=== PATIENT | female | born 2000 | race Caucasian/White ===

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

== ENCOUNTER 2024-10-28 11:07 | Outpatient (CLI) | payer SELFPAY ==
[2024-10-28 11:36] VITALS: BP 118/69; PULSE 94
[2024-10-28 11:48] LABS: Glucose Urine UA Negative (Normal); Nitrate Urine Negative (Negative); Specific Gravity, Urine 1.015 (1.005-1.030)
== END 2024-10-28 13:50 | disposition home or self-care (01) ==
LOC: OPOB 11:08 → OBGYN 11:09
PROVIDERS: PCP Nurse Practitioner Family; Visit Provider Family Medicine
DX: O26.859 Spotting complicating pregnancy, unspecified trimester (principal); Z3A.00 Weeks of gestation of pregnancy not specified; R25.2 Cramp and spasm
CPT/HCPCS: 59025; 81001; 99211; J7030

== ENCOUNTER 2024-12-30 11:30 | Observation (INO) | payer MEDICAID, SELFPAY ==
[2024-12-30] VITALS (12 sets, daily range): BP systolic 117–169; BP diastolic 70–109; PULSE 67–127; RESP 16–18; TEMP 36.7–36.8; O2SAT 97–98; BMI 25.4; BMI 24.6
--- OUTSIDE RECORDS SUMMARY | 2024-12-30 12:04 | XMS_ITS | Continuity of Care Document ---
Author Organization [facility], [facility] - [facility]- Gigi Summers Address [address] [place] [address] Care Team Providers Care Hl7 Developer Name Role Phone [facility] Primary Care Provider Assessment Encounter Date Assessment Date Assessment LastModified by Organization Details LastModified Time 12/23/2024 12/23/2024 admit L&D for IOL, dx GHTN Anatomy: EFW 31%tile, anterior placenta [id number] Not available 12/23/2024 20:08:15 Plan of Treatment Reminders Order Date Submit Date Provider Last Modified By Organization Details Last Modified Time Details Appointments Postpartu m 2024 01:45P M Eve Dennison MD Not available Not available Not available Lab None recorded. Referral None recorded. Procedures None recorded. Surgeries None recorded. Imaging None recorded. Medication Orders None recorded. Patient TargetsNo targets recorded. Patient InstructionsNo instructions recorded. Reason for Referral None Reported. Results Created Date Observation Date Name Description Value Unit Range Abnormal Flag Note LastModifiedBy Organization Detail LastModifiedTime 06/03/1906/02/2024 CBC WBC 8.38 x10(3 )/uL 3.98 - 10.40 Not Available [facility] [address] [place], [address], 06/02/2024 14:28:04 06/03/19 25 06/02/2024 CBC RBC 4.33 x10(6 )/uL 3.93 - 5.22 Not Available [facility] [address] [place], [address], 06/02/2024 14:28:04 06/03/19 25 06/02/2024 CBC HGB 13.3 g/dL 11.2 - 15.7 Not Available [facility] [address] [place], [address], 06/02/2024 14:28:04 06/03/19 25 06/02/2024 CBC HCT 39.2 % 34.1 - 44.9 Not Available [facility] [address] [place], [address], 06/02/2024 14:28:04 06/03/19 25 06/02/2024 CBC MCV 90.5 fL 79.4 - 94.8 Not Available [facility] [address] [place], [address], 06/02/2024 14:28:04 06/03/19 25 06/02/2024 CBC MCH 30.7 pg 25.6 - 32.2 Not Available [facility] [address] [place], [address], 06/02/2024 14:28:04 06/03/19 25 06/02/2024 CBC MCHC 33.9 g/dL 32.2 - 35.5 Not Available [facility] [address] [place], [address], 06/02/2024 14:28:04 06/03/19 25 06/02/2024 CBC platelet count 276 x10(3 )/uL 182 - 369 Not Available [facility] [address] [place], [address], 06/02/2024 14:28:04 06/03/19 25 06/02/2024 CBC neut% 71.7 % 34.0 - 71.1 high Not Available [facility] [address], [place], [place], [address], 06/02/2024 14:28:04 06/03/1906/02/2024 CBC lymph% 19.3 % 19.3 - 51.7 Not Available [facility] [address], [place], [place], [address], 06/02/2024 14:28:04 06/03/19 25 06/02/2024 CBC mono% 5.1 % 4.7 - 12.5 Not Available [facility] [address], [place], [place], [address], 06/02/2024 14:28:04 06/03/19 25 06/02/2024 CBC baso% 0.5 % 0.1 - 1.2 Not Available [facility] [address], [place], [place], [address], 06/02/2024 14:28:04 06/03/19 25 06/02/2024 CBC eo% 3.0 % 0.7 - 5.8 Not Available [facility] [address], [place], [place], [address], 06/02/2024 14:28:06/03/19 25 06/02/2024 CBC Ig% 0.4 % 0.0 - 0.4 Not Available [facility] [address], [place], [address], 06/02/2024 14:28:04 06/03/1906/02/2024 CBC neut# 6.01 x10(3 )/uL 1.56 - 6.13 Not Available [facility] [address], [place], [address], 06/02/2024 14:28:04 06/03/19 25 06/02/2024 CBC lymph# 1.62 x10(3 )/uL 1.18 - 3.74 Not Available [facility] [address] [place], [address], 06/02/2024 14:28:04 06/03/19 25 06/02/2024 CBC mono# 0.43 x10(3 )/uL 0.24 - 0.86 Not Available [facility] [address] [place], [address], 06/02/2024 14:28:04 06/03/19 25 06/02/2024 CBC baso# 0.04 x10(3 )/uL 0.01 - 0.08 Not Available [facility] [address] [place], [address], 06/02/2024 14:28:04 06/03/19 25 06/02/2024 CBC eo# 0.25 x10(3 )/uL 0.04 - 0.36 Not Available [facility] [address] [place], [address], 06/02/2024 14:28:04 06/03/19 25 06/02/2024 CBC Ig# 0.03 x10(3 )/uL 0.00 - 0.03 Not Available [facility] [address], [place], [address], 06/02/2024 14:28:04 06/03/19 25 06/02/2024 CBC RDW-CV 12.1 % 11.7 - 14.4 Not Available [facility] [address], [place], [address], 06/02/2024 14:28:04 06/03/19 25 06/02/2024 CBC RDW-SD 40.3 fL 36.4 - 46.3 Not Available [facility] [address] [place], [address], 06/02/2024 14:28:04 06/03/19 25 06/02/2024 CBC MPV 9.5 fL 9.4 - 12.3 Not Available [facility] [address] [place], [address], 06/02/2024 14:28:04 06/03/19 25 06/02/2024 CBC NRBC# 0.00 x10(3 )/uL 0.00 - 0.01 Not Available [facility] [address] [place], [address], 06/02/2024 14:28:04 06/03/19 25 06/02/2024 CBC NRBC% 0.0 % 0.0 - 0.2 Not Available [facility] [address] [place], [address], 06/02/2024 14:28:04 06/03/19 25 06/02/2024 MICRO SCOPI C URINE EXAM urine WBC 10-20 /hpf 0-3/ hpf abnormal Not Available [facility] [address] [place], [address], 06/02/2024 14:28:06/03/19 25 06/02/2024 MICRO SCOPI C URINE EXAM urine RBC 0-3 /hpf 0-trac e / hpf Not Available [facility] [address] [place], [address], 06/02/2024 14:28:06/03/19 25 06/02/2024 MICRO SCOPI C URINE EXAM urine epithelials 10-20 /hpf 0-trac e/ hpf abnormal Not Available [facility] [address] [place], [address], 06/02/2024 14:28:06 06/03/19 25 06/02/2024 MICRO SCOPI C URINE EXAM urine bacteria 2+ /hpf negati ve abnormal Not Available [facility] [address] [place], [address], 06/02/2024 14:28:06 06/03/19 25 06/02/2024 MICRO SCOPI C URINE EXAM urine casts NONE SEEN /hpf negati ve Not Available [facility] [address] [place], [address], 06/02/2024 14:28:06 06/03/19 25 06/02/2024 MICRO SCOPI C URINE EXAM urine crystals NONE SEEN /hpf negati ve Not Available [facility] [address] [place], [address], 06/02/2024 14:28:06 06/03/19 25 06/02/2024 MICRO SCOPI C URINE EXAM urine yeast NONE SEEN /hpf negati ve Not Available [facility] [address] [place], [address], 06/02/2024 14:28:06 06/03/19 25 06/03/2024 CHLAM YDIA TRACH OMATI S chlamydia trachomatis, aptima NOT DETECT ED normal DNA testi ng perfo rmed by [employer] enedina Ampli ficat ion (TMA) . Resul ts shoul d be inter prete d in conju nctio n with patie nt histo ry and clini jesus prese ntati on. This assay is highl y accur ate, but rare false posit lorena and negat lorena resul ts may occur . Posit lorena resul ts in low preva lence popul ation s may requi re re-ev aluat ion. A negat lorena resul t does not precl ude a possi ble infec tion due to a speci men inade quacy or sampl ing error . Test perfo rmed by [facility], [address], [place] [address] , Eligio Zamarripa ra, DO, [facility], CLIA# [id number] Not Available [facility] ([facility]) [address], [place], [address], 06/04/2024 06:34:13 06/03/19 25 06/03/2024 NEISS ERIA GONOR RHOEA E neisseria gonorrhoeae, aptima NOT DETECT ED normal DNA testi ng perfo rmed by [employer] Ampli ficat ion (TMA) . Resul ts shoul d be inter prete d in conju nctio n with patie nt histo ry and clini jesus prese ntati on. This assay is highl y accur ate, but rare false posit lorena and negat lorena resul ts may occur . Posit lorena resul ts in low preva lence popul ation s may requi re re-ev aluat ion. A negat lorena resul t does not precl ude a possi ble infec tion due to a speci men inade quacy or sampl ing error . Test perfo rmed by [facility], [address], [place] [address] , Eligio Zamarripa ra, , [facility], CLIA# [id number] Not Available [facility] ([facility]) [address], [place], [address], 06/04/2024 06:34:15 06/03/19 25 06/03/2024 ABORH TYPE, BLOOD BANK ABO type, blood bank A Not Available [facility] ([facility]) [address], [place], [address], 06/04/2024 13:33:53 06/03/19 25 06/03/2024 ABORH TYPE, BLOOD BANK Rh typing, blood bank POSITI VE RH testi ng resul ts (RH Posit lorena/R H Negat lorena) are depen dent upon reage nt formu latio ns, techn ical perfo rmanc e of assay , and testi ng platf orm or metho dolog y. With the elimi natio n of routi ne testi ng for the weak expre ssion of the D antig en, some patie nts who have previ ously been class ified as RH Posit lorena many now be repor enedina as RH Negat lorena, or rarel y, vice versa . If you have any quest ions regar ding this test, pleas e call our Clien t Bonii earnest depar tment . Not Available [facility] ([facility]) [facility] [facility] [address], [place], [address], 06/04/2024 13:33:53 06/03/19 25 06/03/2024 ANTIB VALENTINA SCREE N, REFLE X TO IDENT IFICA TION antibody screen, reflex to identificati on NEGATI VE negati ve Not Available [facility] ([facility]) [facility] [address], [place], [address], 06/04/2024 13:33:55 06/03/19 25 06/03/2024 HIV 1/2 AB SCREE N W/P24 AG HIV 1/2 Ab screen w/p24ag NONREA CTIVE nonrea ctive Not Available [facility] [address], [place], [address], 06/04/2024 13:33:56 06/03/19 25 06/03/2024 RUBEL LA ANTIB VALENTINA, IGG rubella antibody, IgG 74.0 IU/mL >9.9 INTER PRETA TION OF RESUL TS < 10.0 Non-i mmune /Non- react lorena >= 10.0 Immun e/[place] ctive Prese nce of antib odies to Rubel la is presu mptiv e evide nce of immun ity excep t when acute infec tion is suspe cted. Not Available [facility] ([facility]) [address] [facility] [address], [place], [address], 06/04/2024 13:33:57 06/03/19 25 06/03/2024 HEMOG LOBIN A1C hemoglobin A1C 4.9 % <5.7 The follo wing HbA1c range s recom mayda d by the Ameri can Diabe renny Assoc iatio n (ADA) may be used as an aid in the diagn osis of diabe renny melli tus. HbA1c Sugge sted Diagn osis >=6.5 % Diabe tic 5.7% - 6.4% Pre-D iabet ic <5.7% Non-D iabet ic Not Available [facility] ([facility]) [facility] [address], [place], [address], 06/04/2024 13:33:58 06/03/19 25 06/03/2024 HEMOG LOBIN A1C estimated average glucose (EAG) 94 mg/dL Estim ated Sarah Ann ge Gluco se (eAG) is calcu lated using the equat ion eAG = (28.7 x HbA1c ) - 46.7 based on the guide lines estab lishe d by the ADA. If the patie nt has certa in disea ses inclu ding kidne y disea se, sickl e cell anemi a, thala ssemi a, or is takin g medic ation s such as dapso ne, eryth ropoi etin, or iron, eAG shoul d not be evalu ated. Not Available [facility] ([facility]) [facility] [address], [place], [address], 06/04/2024 13:33:58 06/03/19 25 06/03/2024 HEPAT ITIS B SURFA CE ANTIG EN (HBSA G) hepatitis B surface antigen (HBsAg) NONREA CTIVE nonrea ctive Not Available [facility] ([facility]) [address] [place] [address] [address], [place], [address], 06/04/2024 13:34:00 06/03/19 25 06/03/2024 HEPAT ITIS C ANTIB VALENTINA (HCV) IGG hepatitis C antibody (HCV) IgG NONREA CTIVE nonrea ctive Not Available [facility] ([facility]) [address] [place] [address] [address], [place], [address], 06/04/2024 13:34:01 06/03/19 25 06/04/2024 HEMOG LOBIN EVAL. WITH RFX FOR CONF. WITH INTER P. HGB A % 97.5 % 94.3-9 8.5 Not Available [facility] ([facility]) [address] [place] [address] [address], [place], [address], 06/04/2024 13:34:02 06/03/19 25 06/04/2024 HEMOG LOBIN EVAL. WITH RFX FOR CONF. WITH INTER P. HGB A2 % 2.5 % 1.5-3. 7 Not Available [facility] ([facility]) [address] [place] [address] [address], [place], [address], 06/04/2024 13:34:02 06/03/19 25 06/04/2024 HEMOG LOBIN EVAL. WITH RFX FOR CONF. WITH INTER P. interpretati on for hemoglobin evaluation SEE COMMEN T Hemog lobin (Hb) elect ropho resis at alkal ine pH shows 2 Hb bands with elect ropho retic mobil ities corre spond ing to A, A2.No abnor mal hemog lobin s detec enedina. One or two gene delet ion alpha thala ssemi a canno t be exclu ded since these condi tions are not assoc iated with abnor mal findi ngs on routi ne hemog lobin elect ropho resis and excep t for mild micro cytos is, are gener ally not assoc iated with other hemat ologi c abnor malit ies.T his inter preta tion of hemog lobin elect ropho resis resul ts is based on the presu mptio n that this patie nt has not been recen tly trans fused with red blood cells .Path ologi st revie wed. NSK Not Available [facility] ([facility]) [address] [facility] [address], [place], [address], 06/04/2024 13:34:02 06/03/19 25 06/03/2024 RPR (NON- TREPO NEMAL ) REFLE X TO CONFI RMATI ON RPR (non-trepone mal) reflex to confirmation NONREA CTIVE nonrea ctive No serol ogica l evide nce of infec tion with Trepo nemal palli dum, early prima ry syphi lis canno t be exclu ded. Retes t in 2-4 weeks if syphi lis is clini yazmin suspe cted. Not Available [facility] ([facility]) [address] [facility] [address], [place], [address], 06/04/2024 13:34:04 06/03/19 25 06/03/2024 VARIC HAYDEN ZOSTE R VIRUS (VZV) ANTIB VALENTINA, IGG varicella zoster virus (vzv) antibody, IgG NEGATI VE S/co negati ve abnormal A negat lorena resul t for IgG antib odies to VZV gener ally indic ates that immun ity has not been acqui red but does not exclu de the possi bilit y of acute VZV infec tion, becau se the infec tion may be in its very early stage and the patie nt may be still unabl e to synth esize VZV speci fic antib odies , or the antib odies may be prese nt in undet ectab le level s. If expos ure to varic hayden- zoste r virus is suspe cted despi te a negat lorena findi ng, a secon d sampl e shoul d be colle cted and teste d for IgM and IgG durin g the cours e of infec tion. A posit lorena resul t for IgG antib odies to VZV gener ally indic ates expos ure to the patho gen or admin istra tion of immun oglob ulins , but it is not an indic ation of activ e infec tion or stage of disea se. Not Available [facility] ([facility]) [address] [place] [address] [address], [place], [address], 06/04/2024 13:34:05 06/03/19 25 06/04/2024 CULTU RE, URINE specimen source URINE - CC Not Available [facility]) [address] [place] [address] [address], [place], [address], 06/04/2024 16:24:10 06/03/19 25 06/04/2024 CULTU RE, URINE culture, urine SEE BELOW Final Repor t : No Signi fican t Growt h Not Available [facility] ([facility]) [address] [place] [address] [address], [place], [address], 06/04/2024 16:24:10 06/03/19 25 06/02/2024 PANOR AMA PRENA LETICIA TEST report summary LOW RISK normal LOW RISK Not Available [facility] [address], [place], [address], 06/07/2024 22:42:32 06/03/19 25 06/02/2024 PANOR AMA PRENA LETICIA TEST report note SEE NOTES normal Not Available [facility] [address], [place], [address], 06/07/2024 22:42:32 06/03/19 25 06/02/2024 PANOR AMA PRENA LETICIA TEST trisomy 13 age-based risk text 7 (0.02% ) normal Not Available [facility] [address], [place], [address], 06/07/2024 22:42:32 06/03/19 25 06/02/2024 PANOR AMA PRENA LETICIA TEST trisomy 13 risk score text <1/10, 000 (<0.01 %) normal Not Available [facility] [address], [place], [address], 06/07/2024 22:42:32 06/03/19 25 06/02/2024 PANOR AMA PRENA LETICIA TEST trisomy 13 result text LOW RISK normal Not Available [facility] [address], [place], [address], 06/07/2024 22:42:32 06/03/19 25 06/02/2024 PANOR AMA PRENA LETICIA TEST trisomy 18 age-based risk text 3 (0.05% ) normal Not Available [facility] [address], [place], [address], 06/07/2024 22:42:32 06/03/19 25 06/02/2024 PANOR AMA PRENA LETICIA TEST trisomy 18 risk score text <1/10, 000 (<0.01 %) normal Not Available [facility] [address], [place], [address], 06/07/2024 22:42:32 06/03/19 25 06/02/2024 PANOR AMA PRENA LETICIA TEST trisomy 18 result text LOW RISK normal Not Available [facility] [address], [place], [address], 06/07/2024 22:42:32 06/03/19 25 06/02/2024 PANOR AMA PRENA LETICIA TEST trisomy 21 age-based risk text (0.1%) normal Not Available [facility] [address], [place], [address], 06/07/2024 22:42:32 06/03/19 25 06/02/2024 PANOR AMA PRENA LETICIA TEST trisomy 21 risk score text <1/10, 000 (<0.01 %) normal Not Available [facility] [address], [place], [address], 06/07/2024 22:42:32 06/03/19 25 06/02/2024 PANOR AMA PRENA LETICIA TEST trisomy 21 result text LOW RISK normal Not Available [facility] [address], [place], [address], 06/07/2024 22:42:32 06/03/19 25 06/02/2024 PANOR AMA PRENA LETICIA TEST monosomy X age-based risk text 1 (0.39% ) normal Not Available [facility] [address], [place], [address], 06/07/2024 22:42:32 06/03/19 25 06/02/2024 PANOR AMA PRENA LETICIA TEST monosomy X risk score text <1/10, 000 (<0.01 %) normal Not Available [facility] [address], [place], [address], 06/07/2024 22:42:32 06/03/19 25 06/02/2024 PANOR AMA PRENA LETICIA TEST monosomy X result text LOW RISK normal Not Available [facility] [address], [place], [address], 06/07/2024 22:42:32 06/03/19 25 06/02/2024 PANOR AMA PRENA LETICIA TEST 22Q11.2 deletion syndrome population-b ased risk text 1/2,00 0 normal Not Available [facility] [address], [place], [address], 06/07/2024 22:42:32 06/03/19 25 06/02/2024 PANOR AMA PRENA LETICIA TEST 22Q11.2 deletion syndrome risk score text 1/3,10 0 normal Not Available [facility] [address], [place], [address], 06/07/2024 22:42:32 06/03/19 25 06/02/2024 PANOR AMA PRENA LETICIA TEST 22Q11.2 deletion syndrome result text LOW RISK normal Not Available [facility] [address], [place], [address], 06/07/2024 22:42:32 06/03/19 25 06/02/2024 PANOR AMA PRENA LETICIA TEST triploidy result text LOW RISK normal Not Available [facility] [address], [place], [address], 06/07/2024 22:42:32 06/03/19 25 06/02/2024 PANOR AMA PRENA LETICIA TEST gender of fetus MALE Not Available [facility] [address], [place], [address], 06/07/2024 22:42:32 06/03/19 25 06/02/2024 PANOR AMA PRENA LETICIA TEST fraction 5.1% Not Available [facility] [address], [place], [address], 06/07/2024 22:42:32 06/03/19 25 06/02/2024 PANOR AMA PRENA ELTICIA TEST footnotes SEE NOTES Testi ng Metho dolog y DNA isola enedina from mater nal blood , which conta ins place ntal DNA, is ampli fied at speci fic loci using a targe enedina PCR assay and is seque nced using a high- throu ghput seque ncer. fract ion is deter mined using a propr ietar y algor ithm incor porat ing data from singl e nucle otide polym orphi sm-ba sed (SNP- based ) next- gener ation seque ncing [Perg deysi E et al. Obste t Gynec ol. 2014 Oct;1 24(2 Pt 1):21 0-8]. If there is suffi cient fract ion, seque ncing data is lisha zed using a propr ietar y SNP-b ased algor ithm to deter mine the copy numbe r for chrom osome s 13, 18, 21, X and Y. If order ed, speci fic micro delet ions will be evalu ated using jacky chun [Wapn er RJ et al. Am J Obste t Gynec ol. 2014;2 12(3) :332. e1-9] . If the fract ion is insuf ficie nt, signa l enhan cemen t and/o r an addit ional algor ithm to deter mine wheth er there is an incre ased risk for tripl oidy, triso my 18, and triso my 13 may be utili zed [Evan moralesa et al. Ultra sound Obste t Gynec ol 2019; 53:73 -79]. Howev er, some sampl es will not produ ce a resul t due to failu re to meet the neces jennifer quali ty thres holds . This test has been valid ated on women with a singl eton, twin or egg donor pregn orion of at least nine weeks gesta tion. A resul t will not be avail able for highe r order multi ples and multi ple gesta tion pregn ancie s with an egg donor or surro gate, or bone marro w trans plant recip ients . Compl ete test panel is not avail able for twin gesta tions and pregn ancie s achie jese with an egg donor or surro gate. For twin pregn ancie s with a fract ion value below the thres hold for lisha sis, a sum of the fract ions for both twins will be repor enedina. As this assay is a scree efrain test and not diagn ostic , false posit des and false negat des can occur . High risk test resul ts need diagn ostic confi rmati on by alter nativ e testi ng metho ds. Low risk resul ts do not fully exclu de the diagn osis of any of the syndr omes nor do they exclu de the possi bilit y of other chrom osoma l abnor malit ies or defec ts, which are not a part of this test. Poten tial sourc es of inacc urate resul ts inclu de, but are not limit ed to, mosai cism, low fract ion, limit ation s of curre nt diagn ostic techn iques , or misid entif icati on of sampl es. This test will not ident marilee all delet ions assoc iated with each micro delet ion syndr ome. This test has been valid ated for delet ions > = 0.5 Mb withi n the 22q11 .2 A-D regio n. This test has been valid ated on full regio n delet ions only for 1p36 delet ion syndr ome, Cri-d u-zayra t syndr ome, Prade r Willi syndr ome and Mitch man syndr ome and may be unabl e to detec t small er delet ions. Micro delet ion risk score may be depen dent upon fract ion, as delet ions on the mater alessandra inher ited copy are diffi cult to ident marilee at lower fract ions. Test resul ts shoul d alway s be inter prete d by a clini rachel in the carina xt of clini jesus and famil ial data with the avail abili ty of cherri ic couns eling when appro priat e. ----- ----- ----- - Discl aimer s The extra ction , nabeel ry prepa ratio n, and seque ncing of this test were perfo rmed by [employer] [address], [place] [address] (CLIA ID [id number] ). The data lisha sis and repor ting of this test were perfo rmed by [employer] [address], [place] [address] (CLIA ID [id number] ). The perfo rmanc e humberto cteri stics of this test were devel oped by [employer].( CLIA ID [id number] ). This test has not been clear ed or appro jese by the U.S. Food and Drug Admin istra tion (FDA) . These labor atori es are regul ated under CLIA as quali fied to perfo rm high- compl exity testi ng. 2020 [employer] All Right s Reser jese. Pleas e refer to the attac hed PDF repor t Revie wed By: Sha Fatima M.D., Ph.D. , FAC , Azam Rios atory Direc tor CLIA Lab Direc tor: Lima Vgiil, Ph.D. , FACMG IF THE ORDER ING PROVI ALFONSO HAS QUEST IONS OR WISHE S TO DISCU SS THE RESUL TS, PLEAS E CONTA CT US AT [phone] #[phone]. 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 Not Available [facility] [address], [place], [address], 06/07/2024 22:42:32 06/03/19 25 06/02/2024 HORIZ ON 4 (SMA, CF, FRAGI LE X, DMD) report summary NEGATI VE normal Negat lorena for 4 out of 4 disea ses. Not Available [facility] [address], [place], [address], 06/12/2024 14:12:38 06/03/19 25 06/02/2024 HORIZ ON 4 (SMA, CF, FRAGI LE X, DMD) cystic fibrosis NEGATI VE normal Not Available [facility] [address], [place], [address], 06/12/2024 14:12:38 06/03/19 25 06/02/2024 HORIZ ON 4 (SMA, CF, FRAGI LE X, DMD) duchenne/bec ker muscular dystrophy (X-linked) NEGATI VE normal Not Available [facility] [address], [place], [address], 06/12/2024 14:12:38 06/03/19 25 06/02/2024 HORIZ ON 4 (SMA, CF, FRAGI LE X, DMD) fragile X syndrome (X-linked) NEGATI VE normal NEGAT LORENA Fragi le X Syndr ome (X-li nked) resul ts 33 and 30 CGG repea ts were detec enedina in the FMR1 genes . Not Available [facility] [address], [place], [address], 06/12/2024 14:12:38 06/03/19 25 06/02/2024 HORIZ ON 4 (SMA, CF, FRAGI LE X, DMD) spinal muscular atrophy NEGATI VE normal NEGAT LORENA Spina l Muscu lar Atrop hy (SMA) Resul ts SMN1: Two copie s; g.271 34T>G : absen t; the absen ce of the g.271 34T>G varia nt decre ases the chan e to be a silen t (2+0) rick er. Not Available [facility] [address], [place], [address], 06/12/2024 14:12:38 06/03/19 25 06/02/2024 HORIZ ON 4 (SMA, CF, FRAGI LE X, DMD) panel notes SEE NOTES Not Available [facility] [address], [place], [address], 06/12/2024 14:12:38 06/03/19 25 06/02/2024 HORIZ ON 4 (SMA, CF, FRAGI LE X, DMD) report note SEE NOTES Not Available [facility] [address], [place], [address], 06/12/2024 14:12:38 06/03/19 25 06/02/2024 HORIZ ON 4 (SMA, CF, FRAGI LE X, DMD) footnotes SEE NOTES Pleas e see the attac hed PDF for infor hayley ziegler Condi tiwanda , Metho dolog y, Discl steven s, and heidi er infor hayley herbert. Test perfo rmed by [employer] : [id number], [place] [address] CLIA ID #[id number] CLIA Lab Direc tor: Lima Vigil, Ph.D. , FACMG Not Available [facility] [address], [place], [address], 06/12/2024 14:12:38 06/03/19 25 06/02/2024 drug scree n, urine THC negati ve Not Available [facility]- [place] [address], [place], [address], 06/02/2024 11:56:44 06/03/19 25 06/02/2024 drug scree n, urine CORY negati ve Not Available [facility]- [place] [address], [place], [address], 06/02/2024 11:56:44 06/03/19 25 06/02/2024 drug scree n, urine OPI negati ve Not Available [facility] [place] [address], [place], [address], 06/02/2024 11:56:44 06/03/19 25 06/02/2024 drug scree n, urine MET negati ve Not Available [facility] [place] [address], [place], [address], 06/02/2024 11:56:44 06/03/19 25 06/02/2024 drug scree n, urine AMP negati ve Not Available [facility] [place] [address], [place], [address], 06/02/2024 11:56:44 06/03/19 25 06/02/2024 drug scree n, urine BZO negati ve Not Available [facility] [place] [address], [place], [address], 06/02/2024 11:56:44 06/03/19 25 06/02/2024 drug scree n, urine BAR negati ve Not Available [facility] [place] [address], [place], [address], 06/02/2024 11:56:44 06/03/19 25 06/02/2024 drug scree n, urine MTD negati ve Not Available [facility] [place] [address], [place], [address], 06/02/2024 11:56:44 06/03/19 25 06/02/2024 drug scree n, urine BUPG negati ve Not Available [facility]- [place] [address], [place], [address], 06/02/2024 11:56:44 06/03/19 25 06/02/2024 drug scree n, urine TCA negati ve Not Available [facility] [place] [address], [place], [address], 06/02/2024 11:56:44 06/03/19 25 06/02/2024 drug scree n, urine MDMA negati ve Not Available [facility] [place] [address], [place], [address], 06/02/2024 11:56:44 06/03/19 25 06/02/2024 drug scree n, urine OXY negati ve Not Available [facility] [place] [address], [place], [address], 06/02/2024 11:56:44 06/03/19 25 06/02/2024 drug scree n, urine PCP negati ve Not Available [facility] [place] [address], [place], [address], 06/02/2024 11:56:44 06/03/19 25 06/02/2024 drug scree n, urine PPX negati ve Not Available [facility]- [place] [address] [place], [address], 06/02/2024 11:56:44 07/29/19 25 08/04/2024 MATER NAL SCREE N, AFP ONLY, 2.0 MOM, SERUM weight (maternal) 121.0 LBS. pound s Not Available [facility] [address] [place], [address], 08/04/2024 17:43:52 07/29/19 25 08/04/2024 MATER NAL SCREE N, AFP ONLY, 2.0 MOM, SERUM race (maternal) CAUCAS YARELI Not Available [facility] [address] [place], [address], 08/04/2024 17:43:52 07/29/19 25 08/04/2024 MATER NAL SCREE N, AFP ONLY, 2.0 MOM, SERUM family history of neural tube defects NO Not Available [facility] [address] [place], [address], 08/04/2024 17:43:52 07/29/19 25 08/04/2024 MATER NAL SCREE N, AFP ONLY, 2.0 MOM, SERUM insulin dependent diabetes NO Not Available [facility] [address], [place], [address], 08/04/2024 17:43:52 07/29/19 25 08/04/2024 MATER NAL SCREE N, AFP ONLY, 2.0 MOM, SERUM screen INITIA L Not Available [facility] [address], [place], [address], 08/04/2024 17:43:52 07/29/19 25 08/04/2024 MATER NAL SCREE N, AFP ONLY, 2.0 MOM, SERUM NOT AVAILA BLE Not Available [facility] [address] [place], [address], 08/04/2024 17:43:52 07/29/19 25 08/04/2024 MATER NAL SCREE N, AFP ONLY, 2.0 MOM, SERUM parity NOT AVAILA BLE Not Available [facility] [address] [place], [address], 08/04/2024 17:43:52 07/29/19 25 08/04/2024 MATER NAL SCREE N, AFP ONLY, 2.0 MOM, SERUM date of LMP 23 Not Available [facility] [address] [place], [address], 08/04/2024 17:43:52 07/29/19 25 08/04/2024 MATER NAL SCREE N, AFP ONLY, 2.0 MOM, SERUM method of estimation LMP Not Available [facility] [address] [place], [address], 08/04/2024 17:43:52 07/29/19 25 08/04/2024 MATER NAL SCREE N, AFP ONLY, 2.0 MOM, SERUM number of fetuses SINGLE TON Not Available [facility] [address] [place], [address], 08/04/2024 17:43:52 07/29/19 25 08/04/2024 MATER NAL SCREE N, AFP ONLY, 2.0 MOM, SERUM weeks gestation 17 WKS 6 DAYS Not Available [facility] [address] [place], [address], 08/04/2024 17:43:52 07/29/19 25 08/04/2024 MATER NAL SCREE N, AFP ONLY, 2.0 MOM, SERUM alpha-fetopr otein (AFP) 51.81 NG/mL Not Available [facility] [address] [place], [address], 08/04/2024 17:43:52 07/29/19 25 08/04/2024 MATER NAL SCREE N, AFP ONLY, 2.0 MOM, SERUM alpha-fetopr otein (AFP) MOM 1.06 MOM 0.00-1 .99 Not Available [facility] [address] [place], [address], 08/04/2024 17:43:52 07/29/19 25 08/04/2024 MATER NAL SCREE N, AFP ONLY, 2.0 MOM, SERUM osb MOM cutoff 2.00 Not Available [facility] [address], [place], [address], 08/04/2024 17:43:52 07/29/19 25 08/04/2024 MATER NAL SCREE N, AFP ONLY, 2.0 MOM, SERUM osb screen NEGATI VE negati ve The mater nal serum AFP MoM resul t is NOT eleva enedina for a pregn orion of this gesta milton l age. The risk of an open neura l tube defec t is less than the kamini barneyg cut-o ff. Not Available [facility] [address], [place], [address], 08/04/2024 17:43:52 07/29/19 25 08/04/2024 MATER NAL SCREE N, AFP ONLY, 2.0 MOM, SERUM open spina bifida risk 1:1070 0 Not Available [facility] [address] [place], [address], 08/04/2024 17:43:52 07/29/19 25 08/04/2024 MATER NAL SCREE N, AFP ONLY, 2.0 MOM, SERUM osb cutoff 1:750 Not Available [facility] [address] [place], [address], 08/04/2024 17:43:52 07/29/19 25 08/04/2024 MATER NAL SCREE N, AFP ONLY, 2.0 MOM, SERUM smoker status UNKNOW N Not Available [facility] [address] [place], [address], 08/04/2024 17:43:52 07/29/19 25 08/04/2024 MATER NAL SCREE N, AFP ONLY, 2.0 MOM, SERUM maternal screen footnote SEE COMMEN T Risk asses sment and risk cutof f are based on using preva lence facto rs such as MoMs, IDDM, race, famil y histo ry and numbe r of fetus es. Not Available [facility] [address] [place], [address], 08/04/2024 17:43:52 10/13/19 25 10/12/2024 CBC WBC 9.12 x10(3 )/uL 3.98 - 10.40 Not Available [facility] [address] [place], [address], 10/12/2024 14:13:53 10/13/19 25 10/12/2024 CBC RBC 3.72 x10(6 )/uL 3.93 - 5.22 low Not Available [facility] [address] [place], [address], 10/12/2024 14:13:53 10/13/19 25 10/12/2024 CBC HGB 11.2 g/dL 11.2 - 15.7 Not Available [facility] [address] [place], [address], 10/12/2024 14:13:53 10/13/19 25 10/12/2024 CBC HCT 33.9 % 34.1 - 44.9 low Not Available [facility] [address] [place], [address], 10/12/2024 14:13:53 10/13/19 25 10/12/2024 CBC MCV 91.1 fL 79.4 - 94.8 Not Available [facility] [address] [place], [address], 10/12/2024 14:13:53 10/13/19 25 10/12/2024 CBC MCH 30.1 pg 25.6 - 32.2 Not Available [facility] [address] [place], [address], 10/12/2024 14:13:53 10/13/19 25 10/12/2024 CBC MCHC 33.0 g/dL 32.2 - 35.5 Not Available [facility] [address] [place], [address], 10/12/2024 14:13:53 10/13/19 25 10/12/2024 CBC platelet count 228 x10(3 )/uL 182 - 369 Not Available [facility] [address] [place], [address], 10/12/2024 14:13:53 10/13/1910/12/2024 CBC neut% 75.5 % 34.0 - 71.1 high Not Available [facility] [address] [place], [address], 10/12/2024 14:13:53 10/13/19 25 10/12/2024 CBC lymph% 14.7 % 19.3 - 51.7 low Not Available [facility] [address] [place], [place], [address], 10/12/2024 14:13:53 10/13/19 25 10/12/2024 CBC mono% 4.8 % 4.7 - 12.5 Not Available [facility] [address] [place], [address], 10/12/2024 14:13:53 10/13/19 25 10/12/2024 CBC baso% 0.2 % 0.1 - 1.2 Not Available [facility] [address] [place], [address], 10/12/2024 14:13:53 10/13/19 25 10/12/2024 CBC eo% 4.6 % 0.7 - 5.8 Not Available [facility] [address] [place], [address], 10/12/2024 14:13:53 10/13/19 25 10/12/2024 CBC Ig% 0.2 % 0.0 - 0.4 Not Available [facility] [address] [place], [address], 10/12/2024 14:13:53 10/13/19 25 10/12/2024 CBC neut# 6.88 x10(3 )/uL 1.56 - 6.13 high Not Available [facility] [address] [place], [address], 10/12/2024 14:13:53 10/13/19 25 10/12/2024 CBC lymph# 1.34 x10(3 )/uL 1.18 - 3.74 Not Available [facility] [address] [place], [address], 10/12/2024 14:13:53 10/13/19 25 10/12/2024 CBC mono# 0.44 x10(3 )/uL 0.24 - 0.86 Not Available [facility] [address] [place], [place], [address], 10/12/2024 14:13:53 10/13/19 25 10/12/2024 CBC baso# 0.02 x10(3 )/uL 0.01 - 0.08 Not Available [facility] [address] [place], [address], 10/12/2024 14:13:53 10/13/19 25 10/12/2024 CBC eo# 0.42 x10(3 )/uL 0.04 - 0.36 high Not Available [facility] [address] [place], [address], 10/12/2024 14:13:53 10/13/19 25 10/12/2024 CBC Ig# 0.02 x10(3 )/uL 0.00 - 0.03 Not Available [facility] [address] [place], [address], 10/12/2024 14:13:53 10/13/1910/12/2024 CBC RDW-CV 12.4 % 11.7 - 14.4 Not Available [facility] [address] [place], [address], 10/12/2024 14:13:53 10/13/1910/12/2024 CBC RDW-SD 41.0 fL 36.4 - 46.3 Not Available [facility] [address], [place], [place], [address], 10/12/2024 14:13:53 10/13/19 25 10/12/2024 CBC MPV 10.2 fL 9.4 - 12.3 Not Available [facility] [address], [place], [place], [address], 10/12/2024 14:13:53 10/13/19 25 10/12/2024 CBC NRBC# 0.00 x10(3 )/uL 0.00 - 0.01 Not Available [facility] [address] [place], [address], 10/12/2024 14:13:53 10/13/19 25 10/12/2024 CBC NRBC% 0.0 % 0.0 - 0.2 Not Available [facility] [address] [place], [address], 10/12/2024 14:13:53 10/13/19 25 10/12/2024 1 HOUR GLUCO SE JESSE ANCE TEST 1 hour glucose 105 mg/dL 74 - 180 Not Available [facility] [address] [place], [address], 10/12/2024 14:13:55 12/02/19 25 12/02/2024 CHLAM YDIA TRACH OMATI S chlamydia trachomatis, aptima NOT DETECT ED normal DNA testi ng perfo rmed by [employer] Ampl[employer] ficat ion (TMA) . Resul ts shoul d be inter prete d in conju nctio n with patie nt histo ry and clini jesus prese ntati on. This assay is highl y accur ate, but rare false posit lorena and negat lorena resul ts may occur . Posit lorena resul ts in low preva lence popul ation s may requi re re-ev aluat ion. A negat lorena resul t does not precl ude a possi ble infec tion due to a speci men inade quacy or sampl ing error . Test perfo rmed by [facility]/b/a [facility], [address], [place] [address] , Eligio Oliveira. Dallin ra, DO, Labor atory Dire tor, CLIA# [id number] Not Available [facility] [address] [place], [address], 12/02/2024 17:43:22 12/02/1912/02/2024 CHLDYANA DE LEON S clinical history UNKNOW N' Not Available [facility] [address] [place], [address], 12/02/2024 17:43:22 12/02/1912/02/2024 CHLDYANA DE LEON S specimen type URINE APTIMA Not Available [facility] [address] [place], [address], 12/02/2024 17:43:22 12/02/1912/02/2024 CAYLA DE LEON S specimen source V Not Available [facility] [address] [place], [address], 12/02/2024 17:43:22 12/02/1912/02/2024 NEISS ERIA GONOR RHOEA E neisseria gonorrhoeae, aptima NOT DETECT ED normal DNA testi ng perfo rmed by [employer] Ampl[employer] ficat ion (TMA) . Resul ts shoul d be inter prete d in conju nctio n with patie nt histo ry and clini jesus prese ntati on. This assay is highl y accur ate, but rare false posit lorena and negat lorena resul ts may occur . Posit lorena resul ts in low preva lence popul ation s may requi re re-ev aluat ion. A negat lorena resul t does not precl ude a possi ble infec tion due to a speci men inade quacy or sampl ing error . Test perfo rmed by [facility], [address], [facility] [place] [address] , Eligio Zamarripa ra, DO, Labor atory [facility], [place]# [id number] Not Available [facility] [address] [place], [address], 12/02/2024 17:43:22 12/02/19 25 12/02/2024 NEISS ERIA GONOR RHOEA E specimen type URINE APTIMA Not Available [facility] [address] [place], [address], 12/02/2024 17:43:22 12/02/1912/02/2024 NEISS ERIA GONOR RHOEA E specimen source V Not Available [facility] [address] [place], [address], 12/02/2024 17:43:22 12/02/1912/02/2024 NEISS ERIA GONOR RHOEA E clinical history UNKNOW N Not Available [facility] [address] [place], [address], 12/02/2024 17:43:22 12/02/1912/02/2024 HIV 1/2 AB SCREE N W/P24 AG HIV 1/2 Ab screen w/p24ag Nonrea ctive nonrea ctive Not Available [facility] [address] [place], [address], 12/02/2024 17:43:23 12/02/1912/02/2024 RPR (NON- TREPO NEMAL ) REFLE X TO CONFI RMATI ON RPR (non-trepone mal) reflex to confirmation NONREA CTIVE nonrea ctive No serol ogica l evide nce of infec tion with Trepo nemal palli dum, early prima ry syphi lis canno t be exclu ded. Retes t in 2-4 weeks if syphi lis is clini yazmin suspe cted. Not Available [facility] [address] [place], [address], 12/02/2024 17:43:23 12/02/1912/03/2024 MOLEC ULAR GROUP B STREP BY PCR WITH SENSI TIVIT Y GB specimen source VAGINA L/RECT AL Not Available [facility] [address] [place], [address], 2024 13:12:32 12/02/1912/03/2024 MOLEC ULAR GROUP B STREP BY PCR WITH SENSI TIVIT Y spec type CULTUR E SWAB Not Available [facility] [address], [address], 2024 13:12:32 12/02/1912/03/2024 MOLEC ULAR GROUP B STREP BY PCR WITH SENSI TIVIT Y group B strep by PCR NOT DETECT ED not detect ed Inter preta tion: A posit lorena resul t indic ates the detec tion of Group B Strep tococ cus DNA but not neces saril y the prese nce of viabl e organ isms; it is presu mptiv e for the prese nce of Group B Strep tococ cus. A negat lorena resul t does not exclu de the possi bilit y of infec tion since very low level s of micro organ ism or sampl ing error may cause a false negat lorena resul t. This assay is highl y accur ate, but rare false posit lorena and false negat lorena resul ts may occur . Metho dolog y: This resul t was deter mined using the FDA-c leare d BD Max GBS Assay . The BD Max GBS Assay is a quali tativ e in vitro diagn ostic test for the rapid detec tion of Group B Strep tococ cus (GBS) DNA in vagin al/re ctal speci mens from prepa rtum or intra partu m women utili zing real- time PCR. Perfo rmed by [facility], d/b/a [facility], [address], [place] [address] , Eligio Oliveira. Dallin ra, DO, Labor atory Direc tor. Not Available [facility] [address], [place], [address], 2024 13:12:32 06/03/19 25 06/02/2024 US, obste tric, 1st trime ster No observ ation record ed. [email or web address] Not Available 2024 13:07:42 08/20/19 25 08/18/2024 US, obste tric, mater nal evalu ation + anato my No observ ation record ed. [email or web address] [facility]- [place] [address], [place], [address], 08/19/2024 09:53:39 12/13/19 25 12/10/2024 US, obste tric, limit ed No observ ation record ed. [facility]- [place] [address] [place], [address], 12/16/2024 16:19:33 Result Notes None recorded. Problems Name Problem SNOMED Code Status Onset Date Resolution Date Notes Provider Name and Address Organization Details Recorded Time 44979846 Active 2024 Elías Nolasco [address], [address], [facility] 5 10:34:45 Genital herpes simplex 97479528 Active 2024 Needs suppressio n at 36w [facility]OMLINSON CNM [address], [address], [facility] 12:05:43 Genital herpes simplex 93601098 Active 2024 Needs suppressio n at 36w [facility] [address], [address], [facility] 12:05:43 Hypertensi on AND/OR vomiting complicati ng childbirth AND/OR puerperium 363661769 Active 2024 Mi Carpenter MD [address], [address], [facility] 5 20:06:21 Hypertensi on AND/OR vomiting complicati ng childbirth AND/OR puerperium 005134012 Active 2024 Mi Carpenter MD [address], [address], [facility] 20:06:21 Problem Notes None recorded. Procedures Surgical History Date Name Laterality Status Provider Name and Address Organization Details Recorded Time 12/11/19 25 USOBFollowUp completed Fatimah Casiano [facility] 12/10/2024 17:21:38 12/02/19 25 Flu [facility] Screening [facility] 12[facility]01/[facility]24 09:25:07 10/27/19 25 USOBLimited completed [facility] 10/26/2024 17:24:04 08/19/19 25 USOBTri2-3 completed [facility] 08/18/2024 11:14:37 06/03/19 25 USOBTri1 completed [facility] [place] [facility] 06/02/2024 11:13:58 03/03/19 16 extraction of wisdom tooth completed Elías Nolasco [address], [address], [facility] 06/02/2024 10:30:07 Imaging Results None recorded. Procedure Notes None recorded. Medical Equipment None Reported. Allergies No known drug allergies Medications Name Sig Start Date Stop Date Status Note LastModified by Organization Details LastModified Time pyridoxine (vitamin B6) 25 mg tablet Take 1 tablet 3 times a day by oral route as needed. 2024 active Not Available Not Available Not Avai lable metronidazol e 500 mg tablet TAKE 1 TABLET BY MOUTH TWICE DAILY FOR 7 DAYS 06/02 completed Not Available Not Available Not Available valacyclovir 500 mg tablet TAKE 1 TABLET BY MOUTH TWICE DAILY FOR 30 DAYS active Not Available Not Available No t Available cyproheptadi ne 4 mg tablet TAKE 1 TABLET BY MOUTH EVERY DAY AT BEDTIME 06/02 completed Not Available Not Available Not Available nitrofuranto in macrocrystal 100 mg capsule TAKE 1 CAPSULE BY MOUTH TWICE DAILY 06/02 completed Not Available Not Available Not Available diclofenac potassium 50 mg tablet TAKE 1 TABLET BY MOUTH THREE TIMES DAILY NEEDED FOR PAIN 06/02 completed Not Available Not Available Not Available docusate sodium 100 mg capsule TAKE 1 CAPSULE BY MOUTH ONCE DAILY active Not Available Not Available No t Available Unisom (doxylamine) 25 mg tablet Take 1 tablet every day by oral route at bedtime. 2024 active Not Available Not Available Not Avai lable active Not Available Not Avai lable Not Available Vitals Date Recorded Body height Oxygen saturation Oxygen saturation in Arterial blood by Pulse oximetry Heart rate Body temperature Body mass index (BMI) Body weight Systolic And Diastolic Systolic And Diastolic Provider Name and Address Organization Details Last Updated DateTime 157.48 cm 99 % 99 % 97 /min 97 [degF] 27.4 kg/m2 61649.4 2 g 144/94 mm[Hg] 146/102 mm[Hg] Nenita [facility] 12:11:46 Social History Question Answer Notes LastModified by Organizat ion Details LastModified Time Tobacco Smoking Status Current Every Day Smoker ann Neal [facility] 08/18/2024 11:32:53 Do You Have An Advance Directive? No Information not available 06/02/2024 If You Are , What Was Your Level Of Alcohol Consumption Prior To ? Occasional Information not available 06/02/2024 Is Blood Transfusion Acceptable In An Emergency? Yes Information not available 06/02/2024 What Is Your Level Of Caffeine Consumption? Moderate Soda 2/day Information not available 08/18/2024 In The 14 Days Before Symptom Onset, Have You Had Close Contact With A Laboratory-confi rmed COVID-19 While That Case Was Ill? No Information not available 06/02/2024 In The 14 Days Before Symptom Onset, Have You Had Close Contact With A Person Who Is Under Investigation For COVID-19 While That Person Was Ill? No Information not available 06/02/2024 Have You Been To An Area Known To Be High Risk For COVID-19? No Information not available 06/02/2024 Are You Deaf Or Do You Have Serious Difficulty Hearing? No Information not available 06/02/2024 What Type Of Diet Are You Following? REGULAR Information not available 06/02/2024 What Is The Highest Grade Or Level Of School You Have Completed Or The Highest Degree You Have Received? [id number] Information not available 06/02/2024 What Was The Date Of Your Most Recent Tobacco Screening? 12/23/2024 [email or web address] Information not available 12/23/2024 How Many Children Do You Have? 0 Information not available 06/02/2024 Do You Use Protection During Sex? No Information not available 06/02/2024 What Is Your Relationship Status? Single Information not available 06/02/2024 Do You Use Your Seat Belt Or Car Seat Routinely? Yes Information not available 06/02/2024 Are You Sexually Active? Yes Information not available 06/02/2024 How Much Tobacco Do You Smoke? No Information not available 08/18/2024 Do You Want To Talk About Contraception Or Prevention During Your Visit Today? No - This Question Does Not Apply To Me/I Prefer Not To Answer Current Information not available 06/02/2024 Sex: Female Functional Status Question Answer Note LastModified by Organizat ion Details LastModified Time Do you use any illicit or recreational drugs? No Information not available 06/02/2024 Do you or have you ever used any other forms of tobacco or nicotine? Yes Information not available 06/02/2024 What is your level of alcohol consumption? None Information not available 06/02/2024 Do you or have you ever used smokeless tobacco? Never used smokeless tobacco Information not available 06/02/2024 Are you currently employed? Yes Information not available 06/02/2024 Are you able to walk independently without assistance or assistive devices? YESWOREST Information not available 06/02/2024 What is your occupation? [employer] Information not available 06/02/2024 Do you or have you ever used e-cigarettes or vape? Current user of electronic cigarettes Information not available 06/02/2024 What is your exercise level? None Information not available 06/02/2024 Mental Status Question Answer Note LastModified by Organization D etails LastModified Time Do you feel stressed (tense, restless, nervous, or anxious, or unable to sleep at night)? [id number] Information not available 08/18/2024 Family History Relationship Description Onset Age of this Age Resolved Age Notes LastModified by Organization Details LastModified Time Father Hypertensive disorder Not available 2024 10:24:02 Paternal Grandmother Malignant neoplasm of breast Not available 2024 10:24:26 Paternal Grandmother Heart disease Not available 2024 10:25:23 Paternal Grandfather Malignant neoplasm of pharynx Not available 2024 10:24:45 Maternal Grandmother Cerebrovascu lar accident Not available 04/2024 10:25:32 Medical History Condition Response Other N Gout N Blood Diseases N Kidney Stones N Hyperthyroidism N Blood Transfusion N Depression N COPD N Incontinence N Edema N Endocrine Disorders N Anxiety Disorder N Muscle, Joint, or Bone Problems N Obesity N Vision or Eye Problems N Arthritis N Auditory Hallucinations N Infertility N Cancer N Varicosities N Stroke N Headaches Y Fibromyalgia N Kidney Disease N Abnormal Bleeding N Reproductive System Problems N Ear or Hearing Problems N Hospitalizations N Learning Disorder N Eating Disorder N Skin Problems N MRSA exposure N Constipation Y Urinary Problems N Brain Injury N Visual Hallucinations N Tuberculosis N AIDS/HIV N Back Problems N Asthma N GERD/Reflux N Hepatitis N Pulmonary Embolism N Chronic Ear Infections N Chicken Pox N Autism Spectrum Disorder (ASD) N Thrombophilias N Thyroid Disease N Breast Cancer N Lung Disease N Hypothyroidism N Developmental or Behavioral Disorders N Defects or Inherited Disease N Breast Problem N Difficulty Swallowing N Anesthesia Complications N Deep Vein Thrombosis N Meniere's disease N Hearing Loss N Head Injury/Concussion N Congenital Anomalies N Abnormal Pap Smear N Endometriosis N Bladder or Kidney Problems N High Cholesterol N Liver Disease N Nervous System Disorder N Psychiatric/Mental Health Condition N Schizophrenia N Allergies/Hayfever Y Parkinson's Disease N [employer] Surgery N GI Problems N ADD/ADHD N Anemia N Colon Polyps N ENT Surgery N Heart Attack (PA) N Diabetes N Ovarian Cancer N Bedwetting N Seizures/Epilepsy N Amnesia N Congestive Heart Failure (CHF) N Eczema N Abuse/Domestic Violence N Dementia N Diverticulitis N Cardiovascular N Back Surgery N Tourette Syndrome N Hypertension N Pre-Eclampsia N [employer] Procedure N Osteoporosis N Gynecological History Statement/Question Response Abnormal Pap N Patient reports last mammogram Date of LMP 03/25/2024 On BCP's at Conception? N Patient reports last colonoscopy Patient reports last pap STIs/STDs Y HPV Vaccine N Age at Menarche 15 Current Control Method Most Recent Bone Density Sexually Active? Y Control at End of Visit Menses Monthly N Sexual Problems? N LMP Definite Desired Control Method N/A Hormone Replacement Therapy N Obstetrics History GPAL:G 1 P 0 0 0 0 Immunizations Vaccine Type Date Status Note Provider Nam e and Address Organization Details Recorded Time Hep B, unspecified formulation 1 completed Not Available [facility] 12/23/2024 11:53:25 Hep B, adolescent/high risk 1 completed Not Available [facility] 12/23/2024 11:53:25 DTaP 1 completed Not Available [facility] 12/23/2024 11:53:25 Hib (PRP-T) 1 completed Not Available [facility] 12/23/2024 11:53:25 IPV 1 completed Not Available [facility] 12/23/2024 11:53:25 pneumococcal conjugate PCV 7 1 completed Not Available [facility] 12/23/2024 11:53:25 DTaP 2 completed Not Available [facility] 12/23/2024 11:53:25 pneumococcal conjugate PCV 7 2 completed Not Available [facility] 12/23/2024 11:53:25 IPV 2 completed Not Available [facility] 12/23/[facility] 11:53:25 Hib (PRP-T) 2 completed Not Available [facility] 12/23/2024 11:53:25 DTaP 2 completed Not Available [facility] 12/23/2024 11:53:25 Hib (HbOC) 2 completed Not Available [facility] 12/23/2024 11:53:25 Hep B, adolescent or pediatric 2 completed Not Available [facility] 12/23/2024 11:53:25 IPV 2 completed Not Available [facility] 12/23/2024 11:53:25 pneumococcal polysaccharide PPV23 2 completed Not Available [facility] 12/23/2024 11:53:25 DTaP 2 completed Not Available [facility] 12/23/2024 11:53:25 MMR 2 completed Not Available [facility] 12/23/2024 11:53:25 varicella 2 completed Not Available [facility] 12/23/2024 11:53:25 pneumococcal conjugate PCV 7 2 completed Not Available [facility] 12/23/2024 11:53:25 Hib (HbOC) 2 completed Not Available [facility] 12/23/2024 11:53:25 Hep A, ped/adol, 2 dose 3 completed Not Available [facility] 12/23/2024 11:53:25 Hep A, unspecified formulation 4 completed [facility] 11:53:25 DTaP 6 completed Not Available [facility] 12/23/2024 11:53:25 IPV 6 completed Not Available [facility] 12/23/2024 11:53:25 MMR 6 completed Not Available [facility] 12/23/2024 11:53:25 Tdap 5 completed Not Available [facility] 12/23/2024 11:53:25 meningococcal MCV4P 9 completed Not Available [facility] 12/23/2024 11:53:25 Tdap 5 completed Nenita [facility] 10/14/2024 12:14:13 RSV, bivalent, protein subunit RSVpreF, diluent reconstituted, 0.5 mL, PF 5 completed Mary Orozco [facility] 11/26/2024 12:23:25 Influenza, MDCK, trivalent, PF 5 completed Arianne Whiteside [facility] 12/01/2024 10:39:55 Past Encounters Encounter ID Performer Location Encounter Start Date Encounter Closed Date Diagnosis/Indication Diagnosis SNOMED-CT Code Diagnosis ICD10 Code Diagnosis IMO Codes Diagnosis Note [id number] iM Carpenter MD [facility] - [facility]- [place] [address] [place] [address] 11/26/2024 11:08:19 11/26/2024 12:56:04 screening 343119928 Z36.9 NIPT low riskHorizo n negativeAF P negative Anatomy: EFW 31%tile, anterior placenta Normal pre gnancy in primigravida 7843026982 92927 Z34.01 Electronic cigarette user 094540440 Z72.89 cessation encouraged Body mass index 20-24 - normal 210493656 Z68.21 BMI 21.4 on intake Genital he rpes simplex 58310435 A60.9 No symptomsOn Valtrex care status 24 4101525 Z34.90 6756030106 Requires d iphtheria, tetanus and pertussis vaccination 474361422 Z23 973387 Administer ed in clinic 10/12/2024. Pt tolerated injection well. DAYA Saldana Routine an tenatal care 872974154 Z34.80 GBS next appt Requires r espiratory syncytial virus vaccination 569405737 Z29.11 [id number] given today 11/26/24 Gestation period, 35 weeks 35829229 Z3A.35 [id number] Doing wellParent s wondering about elective IOL (live 90 mins away). Discussed pros/cons, literature and expected primigravi d course. To discuss in the future. [id number] Mi Carpenter MD [facility] - [facility] [place] [address] [place] [address] 12/01/2024 09:08:36 12/01/2024 10:10:57 Routine care 337295921 Z34.80 GBS next appt screening 2437 30518 Z36.9 NIPT low riskHorizo n negativeAF P negative Anatomy: EFW 31%tile, anterior placenta Gestation period, 35 weeks 43186909 Z3A.35 [id number] Doing wellParent s wondering about elective IOL (live 90 mins away). Discussed pros/cons, literature and expected primigravi d course. To discuss in the future. Normal pre gnancy in primigravida 1377890677 33692 Z34.01 Electronic cigarette user 818869971 Z72.89 cessation encouraged Body mass index 20-24 - normal 683542329 Z68.21 BMI 21.4 on intake Genital he rpes simplex 27481253 A60.9 No symptomsOn Valtrex care status 24 0923230 Z34.90 [id number] Requires d iphtheria, tetanus and pertussis vaccination 325911600 Z23 167582 Administer ed in clinic 10/12/2024. Pt tolerated injection well. DAYA Saldana Requires r espiratory syncytial virus vaccination 405402997 Z29.11 784337 given today 11/26/24 Requires i nfluenza virus vaccination 833727251 Z23 2889945 [id number] Mi Carpenter MD [facility] - [facility] [place] [address] [place] [address] 12/10/2024 15:42:10 12/10/2024 17:15:01 Small for gestational age fetus 328222772 O36.5930 [id number] Mi Carpenter MD [facility]- [place] [address] [place] [address] 12/10/2024 16:03:29 12/10/2024 17:00:36 Routine care 374644994 Z34.80 GBS Neg screening 2437 77850 Z36.9 NIPT low riskHorizo n negativeAF P negative 12/10/24An atomy: EFW 35%tile, anterior placenta Normal pre gnancy in primigravida 2724608624 16314 Z34.01 Electronic cigarette user 087512667 Z72.89 cessation encouraged Body mass index 20-24 - normal 846430136 Z68.21 BMI 21.4 on intake Genital he rpes simplex 43539252 A60.9 No symptomsOn Valtrex care status 24 4136479 Z34.90 1751704914 Requires d iphtheria, tetanus and pertussis vaccination 833126796 Z23 669930 Administer ed in clinic 10/12/2024. Pt tolerated injection well. DAYA Saldana Requires r espiratory syncytial virus vaccination 131347581 Z29.11 245947 given today 11/26/24 Requires i nfluenza virus vaccination 357606563 Z23 [id number] Eve Dennison MD [facility] - [facility]- [place] [address] [facility] [place] [address] 12/17/2024 11:53:05 12/17/2024 14:50:26 Routine care 492422647 Z34.80 GBS Neg screening 2437 38188 Z36.9 NIPT low riskHorizo n negativeAF P negative 12/10/24An atomy: EFW 35%tile, anterior placenta Normal pre gnancy in primigravida 8377116399 68397 Z34.01 Electronic cigarette user 413812711 Z72.89 cessation encouraged Body mass index 20-24 - normal 206009850 Z68.21 BMI 21.4 on intake Genital he rpes simplex 95519907 A60.9 No symptomsOn Valtrex Requires d iphtheria, tetanus and pertussis vaccination 849559155 Z23 039359 Administer ed in clinic 10/12/2024. Pt tolerated injection well. DAYA Saldana Requires r espiratory syncytial virus vaccination 085857651 Z29.11 223661 given today 11/26/24 Requires i nfluenza virus vaccination 701265440 Z23 [id number] administer ed 12/01/2024 Diet education 72350470 Z71.3 Discussed need for balanced diet ---> Per ADA recommenda tions: added sugar <25 gm per day for females, mindful of appropriat e macros (fat, protein, carbs) and exercise to support metabolism of all. Per AHA ---> emphasize fruits, vegetables , whole grains, lean protein, and healthy fats while limiting added sugars, sodium, saturated fats, and processed foods. AHA recommends women consume 25-30 grams of fiber per day. Exercises education, guidance, and counseling 445929802 Z71.82 In addition to mindful diet and nutrition, mindful body movement is essential for metabolism of food. Formal exercise programs, walking within 30-40 min of meals (10-15 min), and strength training 3-4 days per week. Gestation period, 38 weeks 62807408 Z3A.38 2033158 [id number] Mi Carpenter MD [facility] - [facility]- [place] [address] [place] [address] 12/23/2024 11:51:47 12/23/2024 15:13:32 Routine care 020487407 Z34.80 GBS Neg screening 2437 46843 Z36.9 NIPT low riskHorizo n negativeAF P negative 12/10/24An atomy: EFW 35%tile, anterior placenta Normal pre gnancy in primigravida 7610277363 52866 Z34.01 Electronic cigarette user 376468435 Z72.89 cessation encouraged Body mass index 20-24 - normal 612373639 Z68.21 BMI 21.4 on intake Genital he rpes simplex 57468673 A60.9 No symptomsOn Valtrex Requires d iphtheria, tetanus and pertussis vaccination 820845330 Z23 674049 Administer ed in clinic 10/12/2024. Pt tolerated injection well. DAYA Saldana Requires r espiratory syncytial virus vaccination 538986412 Z29.11 963090 given today 11/26/24 Requires i nfluenza virus vaccination 823798897 Z23 [id number] administer ed 12/01/2024 Diet education 23907086 Z71.3 Discussed need for balanced diet ---> Per ADA recommenda tions: added sugar <25 gm per day for females, mindful of appropriat e macros (fat, protein, carbs) and exercise to support metabolism of all. Per AHA ---> emphasize fruits, vegetables , whole grains, lean protein, and healthy fats while limiting added sugars, sodium, saturated fats, and processed foods. AHA recommends women consume 25-30 grams of fiber per day. Exercises education, guidance, and counseling 695212064 Z71.82 In addition to mindful diet and nutrition, mindful body movement is essential for metabolism of food. Formal exercise programs, walking within 30-40 min of meals (10-15 min), and strength training 3-4 days per week. Gestation period, 39 weeks 02076891 Z3A.39 [id number] Hypertensi on AND/OR vomiting complicating childbirth AND/OR puerperium 875866024 O13.3 [id number] admit to L&D for IOLCytotec /Pitocin consents signedL&D aware.GBS neg Health Concerns Section Related Observation LastModified by Organization Detai ls LastModified Time None Recorded Concern Status LastModified by Organization Details LastModified Time None Recorded Payers Encounter Date Sequence Insurance Name Policy Number Policy Casas Covered Member ID Casas Member ID Guarantor Name 12/23/2024 1 [facility] [place] ([place] - [place]MO[place] MARIE Blanc M Tune [id number] Jayashree Tune 12/23/2024 2 [place] Jayashree Tune [id number] Jayashree Tune Notes Date Note Type Note Provider Name and Address Organization Details Recorded Time 12/23/2024 text/html ROS as noted in the HPI Mi Carpenter MD [address] [place] [address], [phone], [facility] 12/23/2024 20:09:48 OBGyn Episode Ob Episode Information Episode Created Date Number of Fetuses Patient Bloodtype Patient rh Status Prepregnancy Weight lbs Domestic Partner Domestic Partner Phone Father Name Document Control Specialist Status 06/03/19 25 1 A Positive 115 Lit Cade OPEN Fetus Data First Name Last Name Admitted to NICU Weight (g) Sex Living Outcome Pediatric Complications Fetus ID Race Codes Race Delivery Type [id number] Problems Problem Notes Problem Name Start Date End Date Resolution Snomed Code Not e Genital herpes simplex 06/02/2024 097142 06 Needs suppression at 36w Hypertension AND/OR vomiting complicating childbirth AND/OR puerperium 12/23/2024 [id number] Estevan Calculation Initial Estevan Date Initial Exam Date Initial Exam Provider Initial Ultrasound Date Last Menstrual Period Date Ultra Sound Weeks Gestation 12/30/2024 06/02/2024 [email or web address] 06/02/2024 03/25/2024 9 Eighteen To Twenty Week Estevan Update Ultra Sound Date Fundal Height At Umbil Quickening Date Ultra Sound Latest Weeks Gestation Final Estevan Confirmed By Final Estevan Confirmed Date Final Estevan Date Ultra Sound Latest Days Gestation 0 0 Pre- Flowsheet Flowsheet Date 06/02/2024 Barreto Score Blood Edema Fundus Height Fundus Units Glucose Ketones Leukocytes Nitrite Labor Signs Protein Cervic Dilation Cervic Effacement Cervic Station Type Weight in lbs Pre/Post Dialysis Refused With clothes 116.242345448411 BP Diastolic BP Location Tested BP Systolic BP Type 76 L arm 112 sitting Fetus Heart Rate Present Fetus Movement Comments Flowsheet Date 06/02/2024 Barreto Score Blood Edema Fundus Height Fundus Units Glucose Ketones Leukocytes Nitrite Labor Signs Protein Cervic Dilation Cervic Effacement Cervic Station Type Weight in lbs Pre/Post Dialysis Refused BP Diastolic BP Location Tested BP Systolic BP Type Fetus Heart Rate Present Fetus Movement Comments Flowsheet Date 06/02/2024 Barreto Score Blood Edema Fundus Height Fundus Units Glucose Ketones Leukocytes Nitrite Labor Signs Protein Cervic Dilation Cervic Effacement Cervic Station Type Weight in lbs Pre/Post Dialysis Refused With clothes 116.383202382760 BP Diastolic BP Location Tested BP Systolic BP Type 76 L arm 112 sitting Fetus Heart Rate Present A 174 Present Fetus Movement Comments 23 y/o female presenting to clinic today as a NEW OB patient to initiate care & for confirmation US. Confirmation US shows single IUP; FHTs are present. LMP 03/25/2024 , some spotting 04/16/2024, none since that time. Final ESTEVAN by LMP 12/30/2024 (concordant US date 01/02/2025)BMI: 21.4# ? 1GENETIC PROBLEMS (PT/FOB): deniesMEDICAL PROBLEMS: headaches, HSVLAST [facility], discussed B6/doxylamineMEDICATIONS:B6/doxylamine, continue PNVLABS: new OB labs, NIPT/[facility], AWAIT RESULTS.Met with resource team today for diet, exercise, safe meds. Discussed frequency of visits, US surveillanceRT 4wk Flowsheet Date 06/30/2024 Barreto Score Blood Edema Fundus Height Fundus Units Glucose Ketones Leukocytes Nitrite Labor Signs Protein Cervic Dilation Cervic Effacement Cervic Station Type Weight in lbs Pre/Post Dialysis Refused With clothes 120.571368332689 BP Diastolic BP Location Tested BP Systolic BP Type 66 L arm 108 sitting Fetus Heart Rate Present A 153 Present Fetus Movement Comments 13+6w CICI. Reports has abdom inal pain at times. Discussed position of uterus. Round ligament pain in , as well as gas/bloating. Reviewed to report regular, patterned, or painful. Denies bleedingNIPT low riskDiscussed AFP at next visit if desires. RTC 3-4wk for AFP offer, then anatomy at following visit Flowsheet Date 07/28/2024 Barreto Score Blood Edema Fundus Height Fundus Units Glucose Ketones Leukocytes Nitrite Labor Signs Protein Cervic Dilation Cervic Effacement Cervic Station 18 cm Type Weight in lbs Pre/Post Dialysis Refused With clothes 121.270734960064 BP Diastolic BP Location Tested BP Systolic BP Type 74 R arm 108 sitting Fetus Heart Rate Present A 154 Present Fetus Movement Comments 17.6 wks, c/o N/V, constipat ion. Concerns with dx HSV. AFP today. Rx for Colace, Valtrex. Anatomy US 2-3 wks. Flowsheet Date 08/18/2024 Barreto Score Blood Edema Fundus Height Fundus Units Glucose Ketones Leukocytes Nitrite Labor Signs Protein Cervic Dilation Cervic Effacement Cervic Station Type Weight in lbs Pre/Post Dialysis Refused BP Diastolic BP Location Tested BP Systolic BP Type Fetus Heart Rate Present Fetus Movement Comments Flowsheet Date 08/18/2024 Barreto Score Blood Edema Fundus Height Fundus Units Glucose Ketones Leukocytes Nitrite Labor Signs Protein Cervic Dilation Cervic Effacement Cervic Station Type Weight in lbs Pre/Post Dialysis Refused With clothes 127.256048290327 BP Diastolic BP Location Tested BP Systolic BP Type 68 L arm 104 sitting Fetus Heart Rate Present A 130 Present Fetus Movement A Yes Comments 20+6w CICI. Denies bleeding o r leaking. Reports good movementAnatomy: EFW 31%tile, anterior placentaNo complaints todayReviewed TDAP and 1hr at 28wRTC 4wk for ROBRTC 8wk for 3d comp/1hr/CBC/TDAP offer Flowsheet Date 09/14/2024 Barreto Score Blood Edema Fundus Height Fundus Units Glucose Ketones Leukocytes Nitrite Labor Signs Protein Cervic Dilation Cervic Effacement Cervic Station Type Weight in lbs Pre/Post Dialysis Refused With clothes 133.132790218802 BP Diastolic BP Location Tested BP Systolic BP Type 78 L arm 116 sitting Fetus Heart Rate Present A 130 Present Fetus Movement A Yes Comments 24+5w CICI. Denies bleeding o r leaking Reports good movementHad dizzy spell this morning while bending over in car. Discussed making sure she has protein with every mealReviewed next visit: 3D comp, TDAP/1hr/CBCRTC 4wk Flowsheet Date 10/12/2024 Barreto Score Blood Edema Fundus Height Fundus Units Glucose Ketones Leukocytes Nitrite Labor Signs Protein Cervic Dilation Cervic Effacement Cervic Station Type Weight in lbs Pre/Post Dialysis Refused With clothes 137.699316870137 BP Diastolic BP Location Tested BP Systolic BP Type 72 L arm 110 sitting Fetus Heart Rate Present A 137 Fetus Movement A Yes Comments 28+5w ROBReports good movementHaving heartburn, okay for PPI or H2 ivet. Reviewed use of compression stockings if sitting/standing for long periods. Had 3D comp US [id number]/CBC collected. TDap given after discussionRTC 2 wk Flowsheet Date 10/26/2024 Barreto Score Blood Edema Fundus Height Fundus Units Glucose Ketones Leukocytes Nitrite Labor Signs Protein Cervic Dilation Cervic Effacement Cervic Station none none Type Weight in lbs Pre/Post Dialysis Refused With clothes 137.294968159110 BP Diastolic BP Location Tested BP Systolic BP Type 68 L arm 110 sitting Fetus Heart Rate Present A 138 Present Fetus Movement A Yes Comments Doing well, GERD improved wi thout meds. HGB and GCT wnl. Plan valtrex at 36w. Would like to schedule a few visits. Flowsheet Date 10/26/2024 Barreto Score Blood Edema Fundus Height Fundus Units Glucose Ketones Leukocytes Nitrite Labor Signs Protein Cervic Dilation Cervic Effacement Cervic Station Type Weight in lbs Pre/Post Dialysis Refused BP Diastolic BP Location Tested BP Systolic BP Type Fetus Heart Rate Present Fetus Movement Comments Flowsheet Date 11/12/2024 Barreto Score Blood Edema Fundus Height Fundus Units Glucose Ketones Leukocytes Nitrite Labor Signs Protein Cervic Dilation Cervic Effacement Cervic Station Type Weight in lbs Pre/Post Dialysis Refused With clothes [id number] BP Diastolic BP Location Tested BP Systolic BP Type 76 L arm 118 sitting Fetus Heart Rate Present A 136 Present Fetus Movement Comments 33.2 wks no comps today. In ER in [place], [place] on 10/28/24 for spotting (dx dehydration-records reviewed). No further spotting. GFM, nl LOF. No PIH, PTL symptoms. Flowsheet Date 11/26/2024 Barreto Score Blood Edema Fundus Height Fundus Units Glucose Ketones Leukocytes Nitrite Labor Signs Protein Cervic Dilation Cervic Effacement Cervic Station Type Weight in lbs Pre/Post Dialysis Refused With clothes 141.600812585632 BP Diastolic BP Location Tested BP Systolic BP Type 70 L arm 108 sitting Fetus Heart Rate Present A 152 Present Fetus Movement A Yes Comments 35.1 wks no comps. Start Swetha trex for HSV. Abrysvo injection today. GBS next appt. Parents asking about IOL (they are 90 mins away). Pros/Cons, reviewed, discussed. Would be elective etc. Flowsheet Date 12/01/2024 Barreto Score Blood Edema Fundus Height Fundus Units Glucose Ketones Leukocytes Nitrite Labor Signs Protein Cervic Dilation Cervic Effacement Cervic Station 0cm -3 Type Weight in lbs Pre/Post Dialysis Refused With clothes 145.147186253175 BP Diastolic BP Location Tested BP Systolic BP Type 78 L arm 118 sitting Fetus Heart Rate Present A 169 Present Fetus Movement A Yes Comments 35+6w ROBDenies bleeding or leakingReports good movementGBS and 36wk labs todayDiscussed starting Valtrex, has rx at homeSVE as notedLabor precautions and kick counts reviewedFlu vaccine givenRTC 1 wk for EFW US and ROBV, then weekly Flowsheet Date 12/10/2024 Barreto Score Blood Edema Fundus Height Fundus Units Glucose Ketones Leukocytes Nitrite Labor Signs Protein Cervic Dilation Cervic Effacement Cervic Station Type Weight in lbs Pre/Post Dialysis Refused BP Diastolic BP Location Tested BP Systolic BP Type Fetus Heart Rate Present Fetus Movement Comments Flowsheet Date 12/10/2024 Barreto Score Blood Edema Fundus Height Fundus Units Glucose Ketones Leukocytes Nitrite Labor Signs Protein Cervic Dilation Cervic Effacement Cervic Station 36 cm Type Weight in lbs Pre/Post Dialysis Refused With clothes 147.978671744255 BP Diastolic BP Location Tested BP Systolic BP Type 70 R arm 108 sitting Fetus Heart Rate Present A 145 Present Fetus Movement Comments 37.1 wks no comps, EFW 35%, TOLU 11.8 cm, vtx. GBS neg Flowsheet Date 12/17/2024 Barreto Score Blood Edema Fundus Height Fundus Units Glucose Ketones Leukocytes Nitrite Labor Signs Protein Cervic Dilation Cervic Effacement Cervic Station 1cm 0% -2 Type Weight in lbs Pre/Post Dialysis Refused With clothes 151.878648514196 BP Diastolic BP Location Tested BP Systolic BP Type 76 L arm 108 sitting Fetus Heart Rate Present A 154 Present Fetus Movement A Yes Comments Doing ok, great FM, no labor signs yet. GBS neg. Taking valtrex. FU next week. Precautions given. Flowsheet Date 12/23/2024 Barreto Score Blood Edema Fundus Height Fundus Units Glucose Ketones Leukocytes Nitrite Labor Signs Protein Cervic Dilation Cervic Effacement Cervic Station 0cm 0% -2 Type Weight in lbs Pre/Post Dialysis Refused Without clothes 149.346808127889 BP Diastolic BP Location Tested BP Systolic BP Type 94 L arm 144 sitting 102 L arm 146 sitting Fetus Heart Rate Present A 135 Present Fetus Movement Comments 39 wks, no comps. BP c/w GHT N, admit to L&D for IOL (PI labs). Consents obtained, all questions answered. Menstrual History Last Menstrual Date Menses Monthly On Bcp Conception Prior Menses Frequency Hcg Plus Date Menarche Onset Age 0103/25/2024 true false 15 Genetic Screening And Infection History Question Response Note History of HIV false Any Other Genetic History false Congenital Heart Defect false Thalassemia (Belgian, Kiswahili, Mediterranean, Or Background): MCV < 80 false Recurrent Loss, Or A Stillbirth false History Of STD, Gonorrhea, Chlamydia, HPV, Syphi lis true HSV Cystic Fibrosis false Maternal Metabolic Disorder (eg, Type 1 Diabetes , PKU) false Medications (including Suppl ements, Vitamins, Herbs, OTC Drugs), Illicit/Recreational Drugs, Alcohol false Nano Disease false History of Hepatitis false Neural Tube Defect (Meningomyelocele, Spina Bifi da, Or Anencephaly) false Other Infection History false Patient Or Baby's Father Had A Child With Defects Not Listed Above false If Yes, Agent(s) And Strength/Dosage false Muscular Dystrophy false If Yes, Was Person Tested For Fragile X? false Patient's Age Will Be 35 Years Or Older At Estim ated Date of Delivery false Patient Or Partner Has History Of Genital Herpes false Live With Someone With TB Or Exposed To TB false Hemophilia Or Other Blood Disorders false Glades's [place] false Sickle Cell Disease Or Trait () false Rash Or Viral Illness Since Last Menstrual Perio d false Down Syndrome false Other Inherited Genetic Or Chromosomal Disorder false Daniel-Sachs (eg, Islam, Cajun, Macedonian-Bangladeshi) f alse Mental Retardation/Autism false Prior GBS-infected child false Delivery Information Delivery Date Delivery Type Labor Anesthesia Weeks Gestation Incision Type Labor Labor Length Hrs Delivered By Post Complications Tubal Sterilization Discharge Date Comments Discharge Information Feeding Method Contraceptive Method Maternal HG B and HCT Levels
--- OUTSIDE RECORDS SUMMARY | 2024-12-30 12:04 | XMS_ITS | Data Portability ---
Author Organization [facility] Address [address] [place] [address] Care Team Providers Care Oracle Consultant Name Role Phone [facility] Primary Care Provider Assessment Encounter Date Assessment Date Assessment LastModified by Organization Details LastModified Time 12/01/2024 12/01/2024 RTC 1 wk with EFW US Anatomy: EFW 31%tile, anterior placenta [email or web address] Not available 12/01/2024 13:07:45 12/10/2024 12/10/2024 RTC 1 wk with EFW US Anatomy: EFW 31%tile, anterior placenta [email or web address] Not available 12/12/2024 16:59:32 12/17/2024 12/17/2024 RTC 1 wk Anatomy: EFW 31%tile, anterior placenta [email or web address] Not available 12/17/2024 12:20:56 12/23/2024 12/23/2024 admit L&D for IOL, dx GHTN Anatomy: EFW 31%tile, anterior placenta [email or web address] Not available 12/23/2024 20:08:15 Plan of Treatment Reminders Order Date Submit Date Provider Last Modified By Organization Details Last Modified Time Details Appointments Postpartu m 2024 01:45P Charlette Dennison MD Not available Not available Not available Lab unlisted lab - chlamydia trachomat is 2024 [address] [facility], [address], [place], [address], 12/02/2024 17:43:22 RPR (rapid plasma reagin), serum [address]24 [address] [facility], [address], [place], [address], 12/02/2024 17:43:23 streptoco ccus group B DNA 2024 [address] [facility], [address], [place], [address], 2024 13:12:32 HIV 1+2 AB + HIV 1 p24 Ag, qualitati ve immunoass ay, serum [email or web address] [facility], [address], [place], [address], 12/06/2024 08:52:28 neisseria gonorrhoe ae DNA, QL, ALLEN+probe , unspecifi ed specimen 2024 [address] [facility], [address], [place], [address], 12/02/2024 17:43:22 Referral None recorded. Procedures None recorded. Surgeries None recorded. Imaging None recorded. Medication Orders None recorded. Patient TargetsNo targets recorded. Patient InstructionsNo instructions recorded. Reason for Referral None Reported. Results Created Date Observation Date Name Description Value Unit Range Abnormal Flag Note LastModifiedBy Organization Detail LastModifiedTime 12/02/1912/02/2024 CHLAM YDIA TRACH OMATI S chlamydia trachomatis, aptima NOT DETECT ED normal DNA testi ng perfo rmed by [employer] enedina Ampli ficat ion (TMA) . Resul ts shoul d be inter prete d in conju nctio n with patie nt histo ry and clini jesus prese ntati on. This assay is highl y accur ate, but rare false posit mel and negat mel resul ts may occur . Posit mel resul ts in low preva lence popul ation s may requi re re-ev aluat ion. A negat mel resul t does not precl ude a possi ble infec tion due to a speci men inade quacy or sampl ing error . Test perfo rmed by [facility] d/b/a Dianna blackman, [address], [place] [address] , Eligio Zamarripa ra, DO, Labor atory [facility], [facility]# [id number] Not Available [facility] Lab [address] [place], [address], 12/02/2024 17:43:22 12/02/1912/02/2024 CHLAM YJOSÉA TRACH OMATI S clinical history UNKNOW N' Not Available [facility] Lab [address] [place], [address], 12/02/2024 17:43:22 12/02/1912/02/2024 CHLAM YJOSÉA MARIA R OMATI S specimen type URINE APTIMA Not Available [facility] Lab [address] [place], [address], 12/02/2024 17:43:22 12/02/1912/02/2024 CHLDYANA MikeJOSÉA MARIA R OMATI S specimen source V Not Available [facility] Lab [address] [place], [address], 12/02/2024 17:43:22 12/02/1912/02/2024 NEISS ERIA GONOR RHOEA [...] y accur ate, but rare false posit mel and negat mel resul ts may occur . Posit mel resul ts in low preva lence popul ation s july requi re re-ev aluat ion. A negat mel resul t does not precl ude a possi ble infec tion due to a speci men inade quacy or sampl ing error . Test perfo rmed by [facility] d/b/a [facility], [address], [place] [address] , Eligio Oliveira. Dallin ra, DO, Labor atory [facility], CLIA# [id number] Not Available [facility] Lab [address] [place], [address], 12/02/2024 17:43:22 12/02/1912/02/2024 NEISS ERIA GONOR RHOEA E specimen type URINE APTIMA Not Available [facility] Lab [address] [place], [address], 12/02/2024 17:43:22 12/02/1912/02/2024 NEISS ERIA GONOR RHOEA E specimen source V Not Available [facility] Lab [address] [place], [address], 12/02/2024 17:43:22 12/02/1912/02/2024 NEISS ERIA GONOR RHOEA E clinical history UNKNOW N Not Available [facility] Lab [address] [place], [address], 12/02/2024 17:43:22 12/02/1912/02/2024 HIV 1/2 AB SCREE N W/P24 AG HIV 1/2 Ab screen w/p24ag Nonrea ctive nonrea ctive Not Available [facility] Lab [address] [place], [address], 12/02/2024 17:43:23 12/02/1912/02/2024 RPR (NON- TREPO NEMAL ) REFLE X TO CONFI RMATI ON RPR (non-trepone mal) reflex to confirmation NONREA CTIVE nonrea ctive No serol ogica l evide nce of infec tion with Trepo nemal palli dum, early prima ry syphi lis canno t be exclu ded. Retes t in 2-4 weeks if syphi lis is clini yazmin suspe cted. Not Available [facility] Lab [address] [place], [address], 12/02/2024 17:43:23 12/02/1912/03/2024 MOLEC ULAR GROUP B STREP BY PCR WITH SENSI TIVIT Y GB specimen source VAGINA L/RECT AL Not Available [facility] Lab [address] [place], [address], 2024 13:12:32 12/02/1912/03/2024 MOLEC ULAR GROUP B STREP BY PCR WITH SENSI TIVIT Y spec type CULTUR E SWAB Not Available [facility] Lab [address] [place], [address], 2024 13:12:32 12/02/1912/03/2024 MOLEC ULAR GROUP B STREP BY PCR WITH SENSI TIVIT Y group B strep by PCR NOT DETECT ED not detect ed Inter preta tion: A posit mel resul t indic ates the detec tion of Group B Strep tococ cus DNA but not neces saril y the prese nce of viabl e organ isms; it is presu mptiv e for the prese nce of Group B Strep tococ cus. A negat mel resul t does not exclu de the possi bilit y of infec tion since very low level s of micro organ ism or sampl ing error may cause a false negat mel resul t. This assay is highl y accur ate, but rare false posit mel and false negat mel resul ts may occur . Metho dolog [...] rtum or intra partu m women utili trent real- time PCR. Perfo rmed by [facility], d/b/a [facility], [address], [place] [address] , Eligio Zamarripa ra, DO, Labor atory [facility]. Not Available [facility] Lab [address] [place], [address], 2024 13:12:32 12/13/19 25 12/10/2024 US, obste tric, limit ed No observ ation record ed. [email or web address] [facility] [address] [place], [address], 12/16/2024 16:19:33 Result Notes None recorded. Problems Name Problem SNOMED Code Status Onset Date Resolution Date Notes Provider Name and Address Organization Details Recorded Time 79277506 Active 2024 Elías Nolasco [address], [address], [facility] 5 10:34:45 Genital herpes simplex 74841666 Active 2024 Needs suppressio n at 36w WIN [facility]OMLIN[facility] CNM [address], [address], [facility] 5 12:05:43 Genital herpes simplex 45316267 Active 2024 Needs suppressio n at 36w [facility] CNM [address], [address], [facility] 5 12:05:43 Hypertensi on AND/OR vomiting complicati ng childbirth AND/OR puerperium 850141778 Active 2024 Mi Carpenter MD [address], [address], [facility] 5 20:06:21 Hypertensi on AND/OR vomiting complicati ng childbirth AND/OR puerperium 206029786 Active 2024 Mi Carpenter MD [address], [address], [facility] 5 20:06:21 Problem Notes None recorded. Procedures Surgical History Date Name Laterality Status Provider Name and Address Organization Details Recorded Time 12/11/19 25 USOBFollowUp completed Fatimah Casiano [facility] 12/10/2024 17:21:38 12/02/19 25 Flu vaccine Screening completed Arianne Whiteside [facility] 12/01/2024 09:25:07 10/27/19 25 USOBLimited completed [facility] 10/26/2024 17:24:04 08/19/19 25 USOBTri2-3 completed [facility] 08/18/2024 11:14:37 06/03/19 25 USOBTri1 completed Genet [facility] 06/02/2024 11:13:58 03/03/19 16 extraction of wisdom tooth completed Elías Nolasco [address], [address], [facility] 06/02/2024 10:30:07 Imaging Results None recorded. [...] index (BMI) Body weight Systolic And Diastolic Provider Name and Address Organization Details Last Updated DateTime 5 157.48 cm 99 % 99 % 83 /min 98.3 [degF] 26.5 kg/m2 87490.8 9 g 118/78 mm[Hg] Arianne [facility] 5 09:23:42 Date Recorded Body height Oxygen saturation Oxygen saturation in Arterial blood by Pulse oximetry Heart rate Body temperature Body mass index (BMI) Body weight Systolic And Diastolic Provider Name and Address Organization Details Last Updated DateTime 5 157.48 cm 99 % 99 % 72 /min 97.7 [degF] 26.9 kg/m2 34077.8 g 108/70 mm[Hg] Gayla Rene [facility] 5 16:20:29 Date Recorded Body height Oxygen saturation Oxygen saturation in Arterial blood by Pulse oximetry Heart rate Body temperature Body mass index (BMI) Body weight Systolic And Diastolic Provider Name and Address Organization Details Last Updated DateTime 5 157.48 cm 99 % 99 % 85 /min 97.2 [degF] 27.6 kg/m2 80408.4 5 g 108/76 mm[Hg] Mary Orozco [facility] 12:09:44 Date Recorded Body height Oxygen saturation Oxygen saturation in Arterial blood by Pulse oximetry Heart rate Body temperature Body mass index (BMI) Body weight Systolic And Diastolic Systolic And Diastolic Provider Name and Address Organization Details Last Updated DateTime 5 157.48 cm 99 % 99 % 97 /min 97 [degF] 27.4 kg/m2 62510.4 2 g 144/94 mm[Hg] 146/102 mm[Hg] Nenita Chandler [facility] 12:11:46 Social History Question Answer Notes LastModified by Organizat ion Details LastModified Time Tobacco Smoking Status Current Every Day Smoker ann Neal [facility] 08/18/2024 11:32:53 Do You Have An Advance [...] Or The Highest Degree You Have Received? XV71219-2 Information not available 06/02/2024 What Was The Date Of Your Most Recent Tobacco Screening? 12/23/2024 Information not available 12/23/2024 How Many Children [...] anxious, or unable to sleep at night)? 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 Procedure N Osteoporosis N Gynecological History Statement/Question [...] B, unspecified formulation 1 completed Not Available [facility] 12/23/2024 11:53:25 Hep B, adolescent/high risk 1 completed Not Available [facility] 12/23/2024 11:53:25 DTaP 1 completed Not Available [facility] 12/23/2024 11:53:25 Hib (PRP-T) 1 completed Not Available [facility] 12/23/2024 11:53:25 IPV 1 completed Not Available [facility] 12/23/2024 11:53:25 pneumococcal conjugate PCV 7 1 completed Not Available [facility] 12/23/2024 11:53:25 DTaP 2 completed Not Available [facility] 12/23/2024 11:53:25 pneumococcal conjugate PCV 7 2 completed Not Available [facility] 12/23/2024 11:53:25 IPV 2 completed Not Available [facility] 12/23/2024 11:53:25 Hib (PRP-T) 2 completed Not Available [facility] 12/23/2024 11:53:25 DTaP 2 completed Not Available [facility] 12/23/2024 11:53:25 Hib (HbOC) 2 completed Not Available [facility] 12/23/2024 11:53:25 Hep B, adolescent or pediatric 2 completed Not Available [facility] 12/23/2024 11:53:25 IPV 2 completed Not Available [facility] 12/23/2024 11:53:25 pneumococcal polysaccharide PPV23 2 completed Not Available [facility] 12/23/2024 11:53:25 DTaP 2 completed Not Available [facility] 12/23/2024 11:53:25 MMR 2 completed Not Available [facility] 12/23/2024 11:53:25 varicella 2 completed Not Available [facility] 12/23/2024 11:53:25 pneumococcal conjugate PCV 7 2 completed Not Available [facility] 12/23/2024 11:53:25 Hib (HbOC) 2 completed Not Available [facility] 12/23/2024 11:53:25 Hep A, ped/adol, 2 dose 3 completed Not Available [facility] 12/23/2024 11:53:25 Hep A, unspecified formulation 4 completed Not Available [facility] 12/23/2024 11:53:25 DTaP 6 completed Not Available [facility] 12/23/2024 11:53:25 IPV 6 completed Not Available [facility] 12/23/2024 11:53:25 MMR 6 completed Not Available [facility] 12/23/2024 11:53:25 Tdap 5 completed Not Available [facility] 12/23/2024 11:53:25 meningococcal MCV4P 9 completed Not Available [facility] 12/23/2024 11:53:25 Tdap 5 completed Nenita Chandler [facility] 10/14/2024 12:14:13 RSV, bivalent, protein subunit RSVpreF, diluent reconstituted, 0.5 mL, PF 5 completed Mary Orozco [facility] 11/26/2024 12:23:25 Influenza, MDCK, trivalent, PF 5 completed Arianne Whiteside [facility] 12/01/2024 10:39:55 Past Encounters Encounter ID Performer Location Encounter Start Date Encounter Closed Date Diagnosis/Indication Diagnosis SNOMED-CT Code Diagnosis ICD10 Code Diagnosis IMO Codes Diagnosis Note [id number] Mi Carpenter MD [facility] [place] [address] [place] [address] 06/02/2024 10:55:06 06/03/2024 12:26:35 screening 566035871 Z36.9 Gestation period, 9 weeks 072475 Z3A.09 Normal pre gnancy in primigravida 4663612959 35723 Z34.01 Electronic cigarette user 104936729 Z72.89 Body mass index 20-24 - normal 956446240 Z68.21 BMI 21.4 on intake Hypertensi on screening 809403782 Z13.6 112/76 on intake Genital he rpes simplex 10611293 A60.9 Needs suppressio n at 36w [id number] Mi Carpenter MD [facility] [place] [address] [place] [address] 06/02/2024 09:44:44 06/02/2024 10:46:27 [id number] Slade Peña [facility] [place] [address] [place] [address] 06/02/2024 10:20:08 06/02/2024 10:45:58 [id number] Mi Carpenter MD [facility] [place] [address] [place] [address] 06/02/2024 10:41:10 06/04/2024 09:31:31 test positive 328939335 Z32.01 [id number] iM Carpenter MD [facility] [place] [address] [place] [address] 06/30/2024 13:20:06 06/30/2024 19:51:25 screening 690593006 Z36.9 NIPT low riskHorizo n negative Normal pre gnancy in primigravida 9415507753 89970 Z34.01 Electronic cigarette user 990740925 Z72.89 Body mass index 20-24 - normal 456644653 Z68.21 BMI 21.4 on intake Hypertensi on screening 174186617 Z13.6 112/76 on intake Genital he rpes simplex 98194584 A60.9 Needs suppressio n at 36w Gestation period, 13 weeks 30239197 Z3A.13 9665252 [id number] Mi Carpenter MD [facility] [place] [address] [place] [address] 07/28/2024 09:26:34 07/29/2024 12:25:48 screening 800041593 Z36.9 NIPT low riskHorizo n negativeAF P pending 07/28/24 Normal pre gnancy in primigravida 1627708842 06328 Z34.01 Electronic cigarette user 860848890 Z72.89 Body mass index 20-24 - normal 104728770 Z68.21 BMI 21.4 on intake Hypertensi on screening 970960607 Z13.6 112/76 on intake Genital he rpes simplex 92325902 A60.9 Needs suppressio n at 36wValtrex rx for prn use Gestation period, 17 weeks 96310178 Z3A.17 8800167 constipati on issues, rx colace. Miralax discussed. [id number] Mi Carpenter MD [facility] [place] [address] [place] [address] 08/18/2024 11:04:25 08/23/2024 14:07:52 screening 494116551 Z36.9 NIPT low riskHorizo n negativeAF P negative Anatomy: EFW 31%tile, anterior placenta Normal pre gnancy in primigravida 4459632590 22959 Z34.01 Electronic cigarette user 056007638 Z72.89 Body mass index 20-24 - normal 451172568 Z68.21 BMI 21.4 on intake Hypertensi on screening 299833284 Z13.6 112/76 on intake Genital he rpes simplex 33359173 A60.9 Needs suppressio n at 36wValtrex rx for prn use Gestation period, 20 weeks 26502580 Z3A.20 6565373 care status 24 2611687 Z34.90 3614977190 [id number] Mi Carpenter MD [facility] [place] [address] [place] [address] 08/18/2024 09:50:55 08/23/2024 14:06:04 screening for malformation 055233090 Z36.3 0491100743 NIPT low riskHorizo n negative [id number] Mi Carpenter MD [facility] [place] [address] [place] [address] 09/14/2024 09:43:48 09/15/2024 14:02:22 screening 281690850 Z36.9 NIPT low riskHorizo n negativeAF P negative Anatomy: EFW 31%tile, anterior placenta Normal pre gnancy in primigravida 5111792763 09393 Z34.01 Electronic cigarette user 194104719 Z72.89 Body mass index 20-24 - normal 118147102 Z68.21 BMI 21.4 on intake Hypertensi on screening 757349330 Z13.6 112/76 on intake Genital he rpes simplex 09225583 A60.9 Needs suppressio n at 36wValtrex rx for prn use care status 24 3072903 Z34.90 5426516184 Gestation period, 24 weeks 324840836 Z3A.24 9264291 [id number] Mi Carpenter MD [facility] [place] [address] [place] [address] 10/12/2024 09:53:27 10/13/2024 18:00:04 screening 762087974 Z36.9 NIPT low riskHorizo n negativeAF P negative Anatomy: EFW 31%tile, anterior placenta Normal pre gnancy in primigravida 9906884199 51468 Z34.01 Electronic cigarette user 886368953 Z72.89 Body mass index 20-24 - normal 584049102 Z68.21 BMI 21.4 on intake Hypertensi on screening 738090427 Z13.6 112/76 on intake Genital he rpes simplex 96096747 A60.9 Needs suppressio n at 36wValtrex rx for prn use care status 24 8669949 Z34.90 8113682958 Gestation period, 28 weeks 26773691 Z3A.28 1873228 Requires d iphtheria, tetanus and pertussis vaccination 783453433 Z23 850015 Administer ed in clinic 10/12/2024. Pt tolerated injection well. DAYA Saldana Routine an tenatal care 755540530 Z34.80 [id number] Eve Dennison MD [facility] [place] [address] [place] [address] 10/26/2024 15:26:05 10/27/2024 14:26:42 screening 405649974 Z36.9 NIPT low riskHorizo n negativeAF P negative Anatomy: EFW 31%tile, anterior placenta Normal pre gnancy in primigravida 1230017756 16838 Z34.01 Electronic cigarette user 224029501 Z72.89 Body mass index 20-24 - normal 987382292 Z68.21 BMI 21.4 on intake Genital he rpes simplex 83519284 A60.9 Needs suppressio n at 36wValtrex rx for prn use care status 24 1219191 Z34.90 1521114363 Requires d iphtheria, tetanus and pertussis vaccination 967876709 Z23 922845 Administer ed in clinic 10/12/2024. Pt tolerated injection well. DAYA Saldana Routine an tenatal care 613188666 Z34.80 Gestation period, 30 weeks 59947878 Z3A.30 2896770 [id number] Eve Dennison MD [facility] [place] [address] [place] [address] 10/26/2024 15:59:49 10/27/2024 14:31:05 Gestation period, 30 weeks 54491988 Z3A.30 4653549 [id number] Mi Carpenter MD [facility] [place] [address] [place] [address] 11/12/2024 11:01:51 11/16/2024 11:40:05 screening 567355305 Z36.9 NIPT low riskHorizo n negativeAF P negative Anatomy: EFW 31%tile, anterior placenta Normal pre gnancy in primigravida 1093372563 05547 Z34.01 Electronic cigarette user 064973580 Z72.89 Body mass index 20-24 - normal 762056955 Z68.21 BMI 21.4 on intake Genital he rpes simplex 74516153 A60.9 Needs suppressio n at 36wValtrex rx for prn use care status 24 8267661 Z34.90 4598153551 Requires d iphtheria, tetanus and pertussis vaccination 248916119 Z23 337278 Administer ed in clinic 10/12/2024. Pt tolerated injection well. DAYA Saldana Routine an tenatal care 625788666 Z34.80 Gestation period, 33 weeks 44237310 Z3A.33 4259254 [id number] Mi Carpenter MD [facility] [place] [address] [place] [address] 11/26/2024 11:08:19 11/26/2024 12:56:04 screening 490145739 Z36.9 NIPT low riskHorizo n negativeAF P negative Anatomy: EFW 31%tile, anterior placenta Normal pre gnancy in primigravida 7490667052 01801 Z34.01 Electronic cigarette user 288863279 Z72.89 cessation encouraged Body mass index 20-24 - normal 522422427 Z68.21 BMI 21.4 on intake Genital he rpes simplex 94100951 A60.9 No symptomsOn Valtrex care status 24 3034930 Z34.90 9425084066 Requires d iphtheria, tetanus and pertussis vaccination 260812089 Z23 557025 Administer ed in clinic 10/12/2024. Pt tolerated injection well. DAYA Saldana Routine an tenatal care 782591519 Z34.80 GBS next appt Requires r espiratory syncytial virus vaccination 631770123 Z29.11 243023 given today 11/26/24 Gestation period, 35 weeks 08284193 Z3A.35 2994862 Doing wellParent s wondering about elective IOL (live 90 mins away). Discussed pros/cons, literature and expected primigravi d course. To discuss in the future. [id number] Mi Carpenter MD [facility] [place] [address] [place] [address] 12/01/2024 09:08:36 12/01/2024 10:10:57 Routine care 014412178 Z34.80 GBS next appt screening 2437 68730 Z36.9 NIPT low riskHorizo n negativeAF P negative Anatomy: EFW 31%tile, anterior placenta Gestation period, 35 weeks 29777538 Z3A.35 0092207 Doing wellParent s wondering about elective IOL (live 90 mins away). Discussed pros/cons, literature and expected primigravi d course. To discuss in the future. Normal pre gnancy in primigravida 1904345281 40126 Z34.01 Electronic cigarette user 251715094 Z72.89 cessation encouraged Body mass index 20-24 - normal 262752750 Z68.21 BMI 21.4 on intake Genital he rpes simplex 19176775 A60.9 No symptomsOn Valtrex care status 24 8109348 Z34.90 4756538100 Requires d iphtheria, tetanus and pertussis vaccination 894412821 Z23 558697 Administer ed in clinic 10/12/2024. Pt tolerated injection well. DAYA Saldana Requires r espiratory syncytial virus vaccination 424658964 Z29.11 967471 given today 11/26/24 Requires i nfluenza virus vaccination 114657753 Z23 8035551 [id number] Mi Carpenter MD [facility] [place] [address] [facility] [place] [address] 12/10/2024 15:42:10 12/10/2024 17:15:01 Small for gestational age fetus 604481014 O36.5930 38653474 [id number] Mi Carpenter MD [facility] [place] [address] [place] [address] 12/10/2024 16:03:29 12/10/2024 17:00:36 Routine care 597702900 Z34.80 GBS Neg screening 2437 94183 Z36.9 NIPT low riskHorizo n negativeAF P negative 12/10/24An atomy: EFW 35%tile, anterior placenta Normal pre gnancy in primigravida [id number] 15511 Z34.01 Electronic cigarette user 926817028 Z72.89 cessation encouraged Body mass index 20-24 - normal 861547434 Z68.21 BMI 21.4 on intake Genital he rpes simplex 54501093 A60.9 No symptomsOn Valtrex care status 24 7776571 Z34.90 [id number] Requires d iphtheria, tetanus and pertussis vaccination 501504698 Z23 565075 Administer ed in clinic 10/12/2024. Pt tolerated injection well. DAYA Saldana Requires r espiratory syncytial virus vaccination 824570863 Z29.11 823202 given today 11/26/24 Requires i nfluenza virus vaccination 275290870 Z23 [id number] Eve Dennison MD [facility] [place] [address] [place] [address] 12/17/2024 11:53:05 12/17/2024 14:50:26 Routine care 002482706 Z34.80 GBS Neg screening 2437 13370 Z36.9 NIPT low riskHorizo n negativeAF P negative 12/10/24An atomy: EFW 35%tile, anterior placenta Normal pre gnancy in primigravida 6581933924 91926 Z34.01 Electronic cigarette user 288300942 Z72.89 cessation encouraged Body mass index 20-24 - normal 929338538 Z68.21 BMI 21.4 on intake Genital he rpes simplex 96386641 A60.9 No symptomsOn Valtrex Requires d iphtheria, tetanus and pertussis vaccination 887950998 Z23 968796 Administer ed in clinic 10/12/2024. Pt tolerated injection well. DAYA Saldana Requires r espiratory syncytial virus vaccination 466785151 Z29.11 568608 given today 11/26/24 Requires i nfluenza virus vaccination 515838375 Z23 [id number] administer ed 12/01/2024 Diet education 05480796 Z71.3 Discussed need for balanced diet ---> [...] per day. Exercises education, guidance, and counseling 661879207 Z71.82 In addition to mindful diet and nutrition, mindful body movement is essential for metabolism of food. Formal exercise programs, walking within 30-40 min of meals (10-15 min), and strength training 3-4 days per week. Gestation period, 38 weeks 06911205 Z3A.38 [id number] Mi Carpenter MD [facility] [place] [address] [place], [place] [address] 12/23/2024 11:51:47 12/23/2024 15:13:32 Routine care 699333185 Z34.80 GBS Neg screening 2437 20023 Z36.9 NIPT low riskHorizo n negativeAF P negative 12/10/24An atomy: EFW 35%tile, anterior placenta Normal pre gnancy in primigravida 1229957061 42871 Z34.01 Electronic cigarette user 834424622 Z72.89 cessation encouraged Body mass index 20-24 - normal 428622078 Z68.21 BMI 21.4 on intake Genital he rpes simplex 02653663 A60.9 No symptomsOn Valtrex Requires d iphtheria, tetanus and pertussis vaccination 993774013 Z23 165451 Administer ed in clinic 10/12/2024. Pt tolerated injection well. DAYA Saldana Requires r espiratory syncytial virus vaccination 273924195 Z29.11 538628 given today 11/26/24 Requires i nfluenza virus vaccination 640561780 Z23 [id number] administer ed 12/01/2024 Diet education 66536037 Z71.3 Discussed need for balanced diet ---> [...] per day. Exercises education, guidance, and counseling 763575265 Z71.82 In addition to mindful diet and nutrition, mindful body movement is essential for metabolism of food. Formal exercise programs, walking within 30-40 min of meals (10-15 min), and strength training 3-4 days per week. Gestation period, 39 weeks 09109966 Z3A.39 [id number] Hypertensi on AND/OR vomiting complicating childbirth AND/OR puerperium 556622603 O13.3 9910229 admit to L&D for IOLCytotec /Pitocin consents signedL&D aware.GBS neg Health Concerns Section Related Observation LastModified by Organization Detai ls LastModified Time None Recorded Concern Status LastModified by Organization Details LastModified Time None Recorded Advance Directives Directive N: Payers Insurance Date Sequence Insurance Name Policy Number Policy Casas Covered Member ID Casas Member ID Guarantor Name 12/17/2024 2 [place] Jayashree Tune [id number] Jayashree Tune 12/30/2024 1 [facility] [place] MOHNET Jayashree Ovalles Tune [id number] Jayashree Tune Notes Date Note Type Note Provider Name and Address Organization Details Recorded Time 12/10/2024 text/html ROS as noted in the HPI Mi Carpenter MD [address] [place] [address], [phone], [facility] 12/12/2024 17:01:27 12/23/2024 text/html ROS as noted in the [facility] Mi Carpenter MD [address], [address], [facility] 12/23/2024 20:09:48 OBGyn Episode Ob Episode Information Episode Created Date Number of Fetuses Patient Bloodtype Patient rh Status Prepregnancy Weight lbs Domestic Partner Domestic Partner Phone Father Name Quebracho Tanner Status 06/03/19 25 1 A Positive 115 Lit Cade OPEN Fetus Data First Name Last Name Admitted to NICU Weight (g) Sex Living Outcome Pediatric Complications Fetus ID Race Codes Race Delivery Type [id number] Problems Problem Notes Problem Name Start Date End Date Resolution Snomed Code Not e Genital herpes simplex 06/02/2024 446041 06 Needs suppression at 36w Hypertension AND/OR vomiting complicating childbirth AND/OR puerperium 12/23/2024 [id number] Amy Calculation Initial Amy Date Initial Exam Date Initial Exam Provider Initial Ultrasound Date Last Menstrual Period Date Ultra Sound Weeks Gestation 12/30/2024 06/02/2024 [email or web address] 06/02/2024 03/25/2024 9 Eighteen To Twenty Week Amy Update Ultra Sound Date Fundal Height At Umbil Quickening Date Ultra Sound Latest Weeks Gestation Final Amy Confirmed By Final Amy Confirmed Date Final Amy Date Ultra Sound Latest Days Gestation 0 0 Pre- Flowsheet Flowsheet Date 06/02/2024 Barreto Score Blood Edema Fundus Height Fundus Units Glucose Ketones Leukocytes Nitrite Labor Signs Protein Cervic Dilation Cervic Effacement Cervic Station Type Weight in lbs Pre/Post Dialysis Refused With clothes 116.741553460828 BP Diastolic BP Location Tested BP Systolic [...] in lbs Pre/Post Dialysis Refused With clothes 116.124349282898 BP Diastolic BP Location Tested BP Systolic BP Type 76 L arm 112 sitting Fetus Heart Rate Present A 174 Present Fetus Movement Comments 23 y/o female presenting to clinic today as a NEW OB patient to initiate care & for confirmation US. Confirmation US shows single IUP; FHTs are present. LMP 03/25/2024 , some spotting 04/16/2024, none since that time. Final AMY by LMP 12/30/2024 (concordant US date 01/02/2025)BMI: 21.4# ? 1GENETIC PROBLEMS (PT/FOB): deniesMEDICAL PROBLEMS: headaches, HSVLAST [facility], discussed B6/doxylamineMEDICATIONS:B6/doxylamine, continue PNVLABS: new OB labs, NIPT/[facility], AWAIT RESULTS.Met with resource team today for diet, exercise, safe meds. Discussed frequency of visits, US surveillanceRTC 4wk Flowsheet Date 06/30/2024 Barreto Score Blood Edema Fundus Height Fundus Units Glucose Ketones Leukocytes Nitrite Labor Signs Protein Cervic Dilation Cervic Effacement Cervic Station Type Weight in lbs Pre/Post Dialysis Refused With clothes 120.802187864617 BP Diastolic BP Location Tested BP Systolic [...] in lbs Pre/Post Dialysis Refused With clothes 121.654727104438 BP Diastolic BP Location Tested BP Systolic [...] in lbs Pre/Post Dialysis Refused With clothes 127.936682219126 BP Diastolic BP Location Tested BP Systolic [...] in lbs Pre/Post Dialysis Refused With clothes 133.849692019655 BP Diastolic BP Location Tested BP Systolic [...] in lbs Pre/Post Dialysis Refused With clothes 137.851698109795 BP Diastolic BP Location Tested BP Systolic BP Type 72 L arm 110 sitting Fetus Heart Rate Present A 137 Fetus Movement A Yes Comments 28+5w ROBReports good movementHaving heartburn, okay for PPI or H2 ivet. Reviewed use of compression stockings if sitting/standing for long periods. Had 3D comp US ahtrf0tc/CBC collected. TDap given after discussionRTC 2 wk Flowsheet Date 10/26/2024 Barreto Score Blood Edema Fundus Height Fundus Units Glucose Ketones Leukocytes Nitrite Labor Signs Protein Cervic Dilation Cervic Effacement Cervic Station none none Type Weight in lbs Pre/Post Dialysis Refused With clothes 137.492752323763 BP Diastolic BP Location Tested BP Systolic [...] in lbs Pre/Post Dialysis Refused With clothes 140.349529451856 BP Diastolic BP Location Tested BP Systolic BP Type 76 L arm 118 sitting Fetus Heart Rate Present A 136 Present Fetus Movement Comments 33.2 wks no comps today. In ER in [place], [place] on 10/28/24 for spotting (dx dehydration-records reviewed). No further spotting. GFM, nl LOF. No PIH, PTL symptoms. Flowsheet Date 11/26/2024 Barreto Score Blood Edema Fundus Height Fundus Units Glucose Ketones Leukocytes Nitrite Labor Signs Protein Cervic Dilation Cervic Effacement Cervic Station Type Weight in lbs Pre/Post Dialysis Refused With clothes 141.871102014908 BP Diastolic BP Location Tested BP Systolic [...] in lbs Pre/Post Dialysis Refused With clothes 145.744414519501 BP Diastolic BP Location Tested BP Systolic [...] in lbs Pre/Post Dialysis Refused With clothes 147.853129075450 BP Diastolic BP Location Tested BP Systolic [...] in lbs Pre/Post Dialysis Refused With clothes 151.639541802896 BP Diastolic BP Location Tested BP Systolic [...] in lbs Pre/Post Dialysis Refused Without clothes 149.855895785781 BP Diastolic BP Location Tested BP Systolic BP Type 94 L arm 144 sitting 102 L arm 146 sitting Fetus Heart Rate Present A 135 Present Fetus Movement Comments 39 wks, no comps. BP c/w GHT N, admit to L&D for IOL (PIH labs). Consents obtained, all questions answered. Menstrual History Last Menstrual Date Menses Monthly On Bcp Conception Prior Menses Frequency Hcg Plus Date Menarche Onset Age 0103/25/2024 true false 15 Genetic Screening And Infection History Question Response Note History of HIV false Any Other Genetic History false Congenital Heart Defect false Thalassemia (Cape Verdean, Yakut, Mediterranean, Or Background): MCV < 80 false [...] false Hemophilia Or Other Blood Disorders false Vermillion's Chorea false Sickle Cell Disease Or Trait () false Rash Or Viral Illness Since Last Menstrual Perio d false Down Syndrome false Other Inherited Genetic Or Chromosomal Disorder false Daniel-Sachs (eg, Druze, Cajun, Indonesian-[place]) f alse Mental Retardation/Autism false Prior GBS-infected child false Delivery Information Delivery Date Delivery Type Labor Anesthesia Weeks Gestation Incision Type Labor Labor Length Hrs Delivered By Post Complications Tubal Sterilization Discharge Date Comments Discharge Information Feeding Method Contraceptive Method Maternal HG B and HCT Levels
[2024-12-30 12:48] LABS: Hematocrit 25.8 % (36-47); Hemoglobin 7.70 g/dL (11.27-16.99); Mean Corpuscular HGB Conc 29.8 g/dL (30-55); Mean Corpuscular Hemoglobin 25.8 pg (27-33); Mean Corpuscular Volume 86.3 fl (85-98); Nucleated Red Blood Cells % 0.3 %; Platelet Count 259 10^3/cmm (157-399); Red Blood Count 2.99 10^6/uL (3.85-5.65); White Blood Count 9.46 10^3/uL (3.29-11.43)
[2024-12-30 13:05] LABS: Alanine Aminotransferase 62 U/L (0-33); Albumin Level 3.6 g/dL (3.5-5.2); Alkaline Phosphatase 163 U/L (35-105); Anion Gap 16.0 (5-19); Aspartate Amino Transferase 58 U/L (0-32); Blood Urea Nitrogen 12 mg/dL (6-20); Calcium 9.4 mg/dL (8.5-10.5); Carbon Dioxide 27 mmol/L (22-29); Chloride 102 mmol/L (98-107); Creatinine Clr Calc Pharmacy 151.4047; Globulin 3.2 g/dL (1.3-4.6); Glucose 95 mg/dL (65-115); Osmolality Calculated 292 mOsm/kg (285-295); Potassium 4.0 mmol/L (3.5-5.1); Sodium 141 mmol/L (136-145); Total Protein 6.8 g/dL (6.6-8.7)
--- NOTE | 2024-12-30 13:52 | W.ED.GENADLT ---
HPI - General Adult General: Chief complaint: General Medical Stated complaint: Post 12/25 High BP Headache Time Seen by Provider: 12/30/24 13:50 History of Present Illness: 24-year-old female who delivered a baby at [facility] about 5 days ago who presents emergency room with hypertension and headache. She also has swelling in her lower extremities. She tells me that she had an emergent secondary to her elevated blood pressure at the time. Henry is that this was preeclampsia. No chest pain. She does have pitting pedal edema. No altered mental status. No focal motor deficits. No abdominal pain. Related Data Home Medications ?Medication ?Instructions ?Recorded ?Confirmed cephalexin 500 mg capsule 500 mg PO TID 12/30/24 12/30/24 hydrocodone 5 mg-acetaminophen 325 See Rx Instructions .Route .COMPLEX 12/30/24 12/30/24 mg tablet ibuprofen 800 mg tablet 800 mg PO TID 12/30/24 12/30/24 labetalol 100 mg tablet 100 mg PO BID 12/30/24 12/30/24 valacyclovir 500 mg tablet 500 mg PO BID 12/30/24 12/30/24 Allergies Allergy/AdvReac Type Severity Reaction Status Date / Time No Known Allergies Allergy Verified 12/30/24 11:54 Review of Systems Narrative: Constitutional symptoms: Negative except as documented in HPI. Skin symptoms: Negative except as documented in HPI. Eye symptoms: Negative except as documented in HPI. ENMT symptoms: Negative except as documented in HPI. Respiratory symptoms: Negative except as documented in HPI. Cardiovascular symptoms: Negative except as documented in HPI. Gastrointestinal symptoms: Negative except as documented in HPI. Genitourinary symptoms: Negative except as documented in HPI. Musculoskeletal symptoms: Negative except as documented in HPI. Neurologic symptoms: Negative except as documented in HPI. Psychiatric symptoms: Negative except as documented in HPI. Endocrine symptoms: Negative except as documented in HPI. PFS ED PFSH: Medical History (Updated 12/30/24 @ 16:36 by Yancy Hallman MD) Lumbar scoliosis Surgical History No pertinent past surgical history Social History Smoking and tobacco/nicotine status: never used tobacco/nicotine Second hand smoke exposure: Yes Alcohol intake: current Alcohol intake frequency: holidays/special occasions only Substance/Drug Use: never Lives independently: Yes Marital status: Single Current occupational status: employed Current occupation: [employer] Current gender identity: Female Physical Exam Narrative: EXAM NARRATIVE: General: Alert, no acute distress. Skin: Warm, dry. Head: Normocephalic, atraumatic. Neck: Supple, trachea midline. Eye: Extraocular movements are intact. Ears, nose, mouth and throat: mucosa moist. Cardiovascular: Regular, Normal peripheral perfusion. 3+ pitting pedal edema Respiratory: Lungs are clear to auscultation, respirations are non-labored, breath sounds are equal, Symmetrical chest wall expansion. Gastrointestinal: Soft, Nontender, Non distended Musculoskeletal: Normal ROM, no deformity. Neurological: Alert and oriented, No focal neurological deficit observed. Psychiatric: Cooperative, appropriate mood & affect. Course Vital Signs: Vital signs: Vital Signs Temperature 98.0 F 12/30/24 11:48 Pulse Rate 127 H 12/30/24 15:41 Blood Pressure 143/96 12/30/24 15:41 Pulse Oximetry 98 12/30/24 15:41 Oxygen Delivery Me thod Room Air 12/30/24 15:41 MDM - General Adult Medical Decision Making Medical decision making: Patient's reason for coming to the emergency room: hypertension, lower extremity swelling and headache Social determinants: None I reviewed the patient's medical record. Patient's last visit here was in 2021 to [facility] for pharyngitis. No records since. Obtaining records from [facility]. Records were obtained and she was admitted and had a secondary to high blood pressure. I reviewed the patient's current home meds Patient takes no regular home medications. Alternate historians: None Differential diagnosis: including but not limited to and based on the above HPI, review of systems and physical exam: Concern for preeclampsia, heart failure, renal failure, urinary tract infection. Orders placed to evaluate differential diagnosis based on the above differential, HPI and physical exam EKG: Time 1455. Rate 79. Normal sinus rhythm, No ST-T changes, no ectopy, incomplete right bundle branch block, This was reviewed and interpreted by myself the ER physician at 1500. Chest x-ray: No acute process. No infiltrate. No pneumothorax. This was reviewed and interpreted by myself the emergency room physician. I also reviewed the radiology report. Lab Review: Laboratory results were reviewed and interpreted by myself the emergency room physician. No leukocytosis. Patient is anemic with a hemoglobin of 7.7. No comparison lab work. BUN/creatinine are 12 and 0.5. proBNP is elevated. Urinalysis is negative for infection, also no protein in the urine. Liver enzymes are normal. Assessment of risk: Level of risk: Moderate risk Hospitalization considerations: Patient is being admitted for hypertension . Concern for preeclampsia Reexamination: Patient remained stable. No increased work of breathing. No altered mental status. No focal motor deficits. At the point of admission patient was very tearful. She had some episodes of tachycardia while she was crying. Consultation: I spoke with Dr. Owens who agrees to admission. We are trying to obtain records of her and the reason for emergent to make sure there is nothing infectious before we admit her to obstetrics. Assessment and plan: hypertension Pedal edema ?IV hydralazine and IV magnesium -I discussed the patient with the hospitalist on-call who is admitting the patient. - Discussed findings and plan with patient. Answered any questions. - All laboratory values were reviewed and interpreted personally by myself, the ER physician - All imaging was reviewed and interpreted personally by myself, the ER physician. - Evaluation and treatment of this problem were appropriate in the emergency setting Lab Data 12/30/24 12:12/30/24 12: Radiology Impressions Chest X-Ray 12/30/24 13:55 IMPRESSION: 1. No acute cardiopulmonary finding. Laboratory Results WBC 9.46 10^3/uL (3.29-11.43) 12/30/24 12: RBC 2.99 10^6/uL (3.85-5.65) L 12/30/24 12: Hgb 7.70 g/dL (11.27-16.99) L 12/30/24 12: Hct 25.8 % (36-47) L 12/30/24 12: MCV 86.3 fl (85-98) 12/30/24 12: MCH 25.8 pg (27-33) L 12/30/24 12: MCHC 29.8 g/dL (30-55) L 12/30/24 12: RDW 15.6 % (12.1-15.1) H 12/30/24 12: Plt Count 259 10^3/cmm (157-399) 12/30/24 12: MPV 10.4 fL (7.4-10.4) 12/30/24 12: Neut % (Auto) 69.9 % 12/30/24 12: Lymph % (Auto) 19.0 % 12/30/24 12: [place] % (Auto) 3.4 % 12/30/24 12: Eos % (Auto) 4.9 % 12/30/24 12: Baso % (Auto) 0.2 % 12/30/24 12: Neut # (Auto) 6.61 10^3/uL (1.8-7.7) 12/30/24 12: Lymph # (Auto) 1.8 10^3/uL (0.8-4.8) 12/30/24 12: [place] # (Auto) 0.3 10^3/uL (0.2-0.9) 12/30/24 12: Eos # (Auto) 0.5 10^3/uL (0.0-0.8) 12/30/24 12: Baso # (Auto) 0.0 10^3/uL (0.0-0.1) 12/30/24 12: Nucleated RBC % (auto) 0.3 % 12/30/24 12: Nucleated RBCs # 0.0 /100WBC 12/30/24 12: Sodium 141 mmol/L (136-145) 12/30/24 12: Potassium 4.0 mmol/L (3.5-5.1) 12/30/24 12: Chloride 102 mmol/L (98-107) 12/30/24 12: Carbon Dioxide 27 mmol/L (22-29) 12/30/24 12: Anion Gap 16.0 (5-19) 12/30/24 12: BUN 12 mg/dL (6-20) 12/30/24 12: Creatinine 0.5 mg/dL (0.5-0.9) 12/30/24 12: GFR Calculation 151.6 mL/min (90-130) H 12/30/24 12: Glucose 95 mg/dL (65-115) 12/30/24 12: Calculated Osmolality 292 mOsm/kg (285-295) 12/30/24 12: Calcium 9.4 mg/dL (8.5-10.5) 12/30/24 12: Total Bilirubin 0.2 mg/dL (0.15-1.2) 12/30/24 12: AST 58 U/L (0-32) H 12/30/24 12: ALT 62 U/L (0-33) H 12/30/24 12: Alkaline Phosphatase 163 U/L (35-105) H 12/30/24 12: NT-Pro-B Natriuret Pep 1925 pg/mL (0-125) H 12/30/24 12: Total Protein 6.8 g/dL (6.6-8.7) 12/30/24 12: Albumin 3.6 g/dL (3.5-5.2) 12/30/24 12: Globulin 3.2 g/dL (1.3-4.6) 12/30/24 12: Urine Color Yellow (Yellow) 12/30/24 14:42 Urine Appearance Clear (CLEAR) 12/30/24 14:42 Urine pH 8.0 (5-7) A 12/30/24 14:42 Ur Specific [place] 1.009 (1.005-1.030) 12/30/24 14:42 Urine Protein Negative (Negative) 12/30/24 14:42 Urine Glucose (UA) Negative (Normal) 12/30/24 14:42 Urine Ketones Negative (Negative) 12/30/24 14: Urine Blood 2+ (Negative) A 12/30/24 14:42 Urine Nitrate Negative (Negative) 12/30/24 14:42 Urine Bilirubin Negative (Negative) 12/30/24 14:42 Urine Urobilinogen 0.2 mg/dL (Negative) 12/30/24 14:42 Ur Leukocyte Esterase 1+ (Negative) A 12/30/24 14:42 Urine RBC 6-10 /hpf (0-2) 12/30/24 14:42 Urine WBC 11-20 /hpf (0-5) H 12/30/24 14:42 Ur Squamous Epith Cells 0-5 /hpf (0-5) 12/30/24 14:42 Amorphous Sediment Not Reportable 12/30/24 14:42 Urine Bacteria None seen /hpf (NONE) 12/30/24 14:42 Hyaline Casts 0-4 /lpf H 12/30/24 14:42 All radiology interpretation(s) finalized by discharge Discharge Plan Discharge Admit Provider: Triston Owens Clinical Impression: hypertension, Bilateral edema of lower extremity Condition: Stable Coding Level of Care Code ED Activities Coordinator for Veronica Arteaga
--- NOTE | 2024-12-30 13:55 | XR_ITS ---
WS: [id number] Exam: XR chest 1V portable [id number] Date/Time of Exam: 12/30/2024 1:55 PM Reason For Exam: hypertension No priors. Lungs are fully expanded and clear. Cardiomediastinal silhouette is unremarkable for technique. No pleural effusion. Normal bony structures. XR/XR chest 1V portable [id number] IMPRESSION: 1. No acute cardiopulmonary finding.
[2024-12-30 14:21] LABS: NT Pro B Type Natriuretic Pept 1925 pg/mL (0-125)
--- NOTE | 2024-12-30 14:55 | ECG_ITS ---
[employer] Test Date: 2024-12-30 Pat Name: Jayashree Agrawal Department: Room: Gender: Female Nursing Technician: : 2000 Requested By: Yancy Retana Order Number: [id number] Carey MD: Rubens Zee M.D. Measurements Intervals [place] Rate: 79 P: 68 VA: 128 QRS: 19 QRSD: 97 T: 60 QT: 319 QTc: 366 Interpretive Statements SINUS RHYTHM WITH SINUS ARRHYTHMIA INCOMPLETE RIGHT BUNDLE BRANCH BLOCK [90+ ms QRS DURATION, TERMINAL R IN V1/V2, 40+ ms S IN I/aVL/V4/V5/V6] No previous ECG available for comparison Electronically Signed On 01-01-2025 20:47:42 CDT by Rubens Zee M.D. [email or web address]
[2024-12-30] MEDS: hyDRALAzine 20 mg/mL INJ 1 mL IVP (15:05)
[2024-12-30] MEDS: magnesium sulfate premix 4 GM/100 ML PREMIX IV (15:05)
[2024-12-30 15:11] LABS: Glucose Urine UA Negative (Normal); Nitrate Urine Negative (Negative); Specific Gravity, Urine 1.009 (1.005-1.030)
[2024-12-30 15:21] LABS: Add Urine Microscopic? YES
[2024-12-30] MEDS: magnesium sulfate premix 20 GM/500 ML BAG IV (17:53)
[2024-12-30] MEDS: HYDROcodone-acetaminophen 5-325 mg Tablet PO (17:53)
--- NOTE | 2024-12-30 18:20 | PM.OBGYHP ---
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 History of Present Illness Jayashree Agrawal is a 24 year old female Had care in [place] Had no complications until term, when she was noted to have elevated BPs She was admitted to a hospital in [place], underwent induction of labor Had primary low-transverse December 25, 2024 for failure to progress Patient was discharged to home on December 26, 2024 in good condition She was doing well until this morning Patient noted headache and elevated BP when she checked her BP at home Brought to [facility] by ambulance No seizure, blurry vision, abdominal pain, vaginal bleeding No nausea, vomiting No dizziness, palpitation, chest pain, shortness of breath + moderately severe headache, states feels worse than a migraine + lower extremity swelling In ER, BP was 143 / 96 Hgb was 7.7 Other labs, including platelets, normal EKG normal Patient is now admitted to OB with diagnosis of pre-eclampsia Medications/Allergies Home Medications ?Medication ?Instructions ?Recorded ?Confirmed ?Last Taken ?Type cephalexin 500 mg capsule 500 mg PO TID 12/30/24 12/30/24 12/30/24 08:00 History hydrocodone 5 mg-acetaminophen 325 See Rx Instructions .Route .COMPLEX 12/30/24 12/30/24 12/30/24 09:00 History mg tablet ibuprofen 800 mg tablet 800 mg PO TID 12/30/24 12/30/24 12/30/24 10:00 History labetalol 100 mg tablet 100 mg PO BID 12/30/24 12/30/24 12/30/24 08:00 History valacyclovir 500 mg tablet 500 mg PO BID 12/30/24 12/30/24 Unknown History Allergies Allergy/AdvReac Type Severity Reaction Status Date / Time No Known Allergies Allergy Verified 12/30/24 11:54 [facility] PFS: Medical History (Updated 12/30/24 @ 16:36 by Yancy Hallman MD) Lumbar scoliosis Surgical History No pertinent past surgical history Social History Smoking and tobacco/nicotine status: never used tobacco/nicotine Second hand smoke exposure: Yes Alcohol intake: current Alcohol intake frequency: holidays/special occasions only Substance/Drug Use: never Lives independently: Yes Marital status: Single Current occupational status: employed Current occupation: [employer] Current gender identity: Female Vitals/I&O/Wt Last Vital Signs Temp 98.3 F 12/30/24 20:53 Pulse 106 H 12/30/24 20:52 Resp 16 12/30/24 20:53 BP 130/85 12/30/24 20:52 Pulse Ox 98 12/30/24 15:41 O2 Del Method Room Air 12/30/24 17:00 12/30/24 12/30/24 12/30/24 06:59 14:59 22:59 Output Total 1200 / 1200 Balance -1200 / -1200 Weight last 48 hrs Weight 138 lb 15.988 oz Weight 139 lb Physical Exam Narrative: Weight 138 lbs; 5?3? General comfortable, awake, alert, appropriate VS afebrile, BPs Lungs: clear Cor: RRR Abd: soft, nondistended, nontender Pfannenstiel wound healing well Ext: nontender. +1 bilateral lower extremity edema Data 12/30/24 12:29 12/30/24 12:29 Results Labs OB ([facility]): Hct, (36-47) 25.8 % L Today Hgb, (11.27-16.99) 7.70 g/dL L Today Plt Count, (157-399) 259 10^3/cmm Today Micro Urine Specimen Today A&P Assessment and plan 1. hypertension: s/p December 25, 2024 pre-eclampsia patient with headache and elevated BPs will admit Start MgSO4, 4 gm loading dose, 2 gms / hour Start labetolol 100 mg po bid Start Procardia 30 mg XL one po q 12 hrs Monitor urine output Monitor clinical condition PDMP PDMP Reviewed: Not Reviewed Attestations Medical Necessity Statement*: patient is s/p on December 25, 2024, now with pre-eclampsia Coding Level of Care Code Acute Code for Chg Fwd Diagnoses hypertension O16.5
[2024-12-30] MEDS: ferrous sulfate EC 325 mg Tablet PO (18:24)
[2024-12-30] MEDS: NIFEdipine ER (24 hr) 30 mg Tablet PO (18:24)
[2024-12-31] VITALS (18 sets, daily range): BP systolic 97–152; BP diastolic 59–95; PULSE 80–107
[2024-12-31] MEDS: magnesium sulfate premix 20 GM/500 ML BAG IV (03:58)
[2024-12-31] MEDS: PRENATAL VIT NO.130/IRON/FOLIC 1 EACH TABLET PO (06:05)
[2024-12-31] MEDS: ferrous sulfate EC 325 mg Tablet PO (07:12)
[2024-12-31] MEDS: HYDROcodone-acetaminophen 5-325 mg Tablet PO (07:12)
--- NOTE | 2024-12-31 08:21 | PC.NURSE ---
Patient rounding In room at this time to answer call light. Patient was sitting in bed holding baby. Desitin given that was supplied by outpatient pharmacy.
--- NOTE | 2024-12-31 11:04 | PC.NURSE ---
orders from Dr. Owens to turn magnesium down to 1gram an hr and then at 1700 if pressures are still within range to discontinue the magnesium.
--- NOTE | 2024-12-31 15:35 | P.PN_ITS ---
[employer]GER Subjective 2 Subjective: Interval history: States feeling much better, only mild headache Eating, voiding, ambulating well no dizziness, weakness, palpitations, shortness of breath Vitals/I&O/Wt Last Vital Signs Temp 98.3 F 12/30/24 20:53 Pulse 92 12/31/24 17:42 Resp 16 12/30/24 20:53 BP 152/95 12/31/24 17:42 Pulse Ox 98 12/30/24 15:41 O2 Del Method Room Air 12/30/24 17:00 Physical Exam 2 Narrative: BPs 121 / 83; 122 / 80; 126 / 73 General comfortable, awake, alert Lungs: clear Cor: RRR Abd: soft, nontender. Wound healing well Ext: no edema Data 12/30/24 12:29 12/30/24 12:29 A&P Assessment and plan 1. hypertension: s/p December 25, 2024 elsewhere admitted with pre-eclampsia patient had headache and elevated BPs treated with MgSO4, labetolol, and Procardia clinically much improved plan stop MgSO4 plan discharge to home continue labetolol 100 mg po bid and Procardia 30 mg XL one po daily strict instructions given to patient to followup with her OB within two days Return to ER if headache, malaise, abdominal pain, bleeding, fever, chills, nausea, Vomiting 2. Anemia: encouraged iron 1-2 tabs / day eat iron- and protein-rich foods go to ER if dizziness, weakness, chest pain, palpitations, shortness of breath f/u with her OB within two days PDMP PDMP Reviewed: Not Reviewed Attestations 2 Medical Necessity Statement*: patient admitted with pre-eclampsia, plan to discharge to home today Coding Level of Care Code Acute Code for Chg Fwd Diagnoses hypertension O16.5 Anemia D64.9
--- OUTSIDE RECORDS SUMMARY | 2025-01-03 10:41 | XMS_ITS | Data Portability ---
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 Name Role Phone [facility] Primary Care Provider Assessment Encounter Date Assessment Date Assessment LastModified by Organization Details LastModified Time 12/01/2024 12/01/2024 RTC 1 wk with EFW US Anatomy: EFW 31%tile, anterior placenta [email or web address] Not available 12/01/2024 13:07:45 12/10/2024 12/10/2024 RTC 1 wk with EFW US Anatomy: EFW 31%tile, anterior placenta [email or web address] Not available 12/12/2024 16:59:32 12/17/2024 12/17/2024 RTC 1 wk Anatomy: EFW 31%tile, anterior placenta [email or web address] Not available 12/17/2024 12:20:56 12/23/2024 12/23/2024 admit L&D for IOL, dx GHTN Anatomy: EFW 31%tile, anterior placenta [email or web address] Not available 12/23/2024 20:08:15 Plan of Treatment Reminders Order Date Submit Date Provider Last Modified By Organization Details Last Modified Time Details Appointments Postpartu m 2024 01:45P Charlette Dennison MD Not available Not available Not available Lab unlisted lab - chlamydia trachomat is 2024 025 [facility], [address], [place], [address], 12/02/2024 17:43:22 RPR (rapid plasma reagin), serum 2024 025 [facility], [address], [place], [address], 12/02/2024 17:43:23 streptoco ccus group B DNA 2024 025 [facility], [address], [place], [address], 2024 13:12:32 HIV 1+2 AB + HIV 1 p24 Ag, qualitati ve immunoass ay, serum [email or web address] [facility], [address], [place], [address], 12/06/2024 08:52:28 neisseria gonorrhoe ae DNA, QL, ALLEN+probe , unspecifi ed specimen 2024 025 [facility], [address], [place], [address], 12/02/2024 17:43:22 Referral None recorded. Procedures None [...] perfo rmed by Trans cript ion Media eendina Ampli ficat ion (TMA) . Resul ts [...] [address], [place] [address] , Eligio Zamarripa ra, DO, Labor atory [facility], [facility]# [id number] Not Available [facility] [address] [place], [address], 12/02/2024 17:43:22 12/02/1912/02/2024 CHLAM YJOSÉA TRACH OMATI S clinical history UNKNOW N' Not Available [facility] [address] [place], [address], 12/02/2024 17:43:22 12/02/1912/02/2024 CHLAM YJOSÉA MARIA R OMATI S specimen type URINE APTIMA Not Available [facility] [address] [place], [address], 12/02/2024 17:43:22 12/02/1912/02/2024 CHLDYANA MikeJOSÉA MARIA R OMATI S specimen source V Not Available [facility] [address] [place], [address], 12/02/2024 17:43:22 12/02/1912/02/2024 NEISS ERIA GONOR RHOEA [...] Airpa rk [address], [place] [address] , Eligio Oliveira. Dallin ra, DO, Labor atory [facility], CLIA# [id number] Not Available [facility] [address] [place], [address], 12/02/2024 17:43:22 12/02/1912/02/2024 NEISS ERIA GONOR RHOEA E specimen type URINE APTIMA Not Available [facility] [address] [place], [address], 12/02/2024 17:43:22 12/02/1912/02/2024 NEISS ERIA GONOR RHOEA E specimen source V Not Available [facility] [address] [place], [address], 12/02/2024 17:43:22 12/02/1912/02/2024 NEISS ERIA GONOR RHOEA E clinical history UNKNOW N Not Available [facility] [address] [place], [address], 12/02/2024 17:43:22 12/02/1912/02/2024 HIV 1/2 AB SCREE N W/P24 AG HIV 1/2 Ab screen w/p24ag Nonrea ctive nonrea ctive Not Available [facility] [address] [place], [address], 12/02/2024 17:43:23 12/02/1912/02/2024 RPR (NON- TREPO NEMAL ) REFLE X TO CONFI RMATI ON RPR (non-trepone mal) reflex to confirmation NONREA CTIVE nonrea ctive No serol ogica l evide nce of infec tion with Trepo nemal palli dum, early prima ry syphi lis canno t be exclu ded. Retes t in 2-4 weeks if syphi lis is clini yazmin suspe cted. Not Available [facility] [address] [place], [address], 12/02/2024 17:43:23 12/02/1912/03/2024 MOLEC ULAR GROUP B STREP BY PCR WITH SENSI TIVIT Y GB specimen source VAGINA L/RECT AL Not Available [facility] [address] [place], [address], 2024 13:12:32 12/02/1912/03/2024 MOLEC ULAR GROUP B STREP BY PCR WITH SENSI TIVIT Y spec type CULTUR E SWAB Not Available [facility] [address] [place], [address], 2024 13:12:32 12/02/1912/03/2024 MOLEC ULAR GROUP B [...] Airpa rk [address], [place] [address] , Eligio Zamarripa ra, DO, Labor atory Direc tor. Not Available [facility] [address] [place], [address], 2024 13:12:32 12/13/19 25 12/10/2024 US, obste tric, limit ed No observ ation record ed. [email or web address] [facility] - Director Of Patient Care/Peds- [address] [place], [address], 12/16/2024 16:19:33 Result Notes None recorded. Problems Name Problem SNOMED Code Status Onset Date Resolution Date Notes Provider Name and Address Organization Details Recorded Time 98832683 Active 2024 Elías Nolasco [address], [address], [facility] 5 10:34:45 Genital herpes simplex 10267811 Active 2024 Needs suppressio n at 36w [facility]OM[facility] CNM [address], [address], [facility] 5 12:05:43 Genital herpes simplex 12932193 Active 2024 Needs suppressio n at 36w [facility] [address], [address], [facility] 5 12:05:43 Hypertensi on AND/OR vomiting complicati ng childbirth AND/OR puerperium 742187382 Active 2024 Mi Carpenter MD [address], [address], [facility] 5 20:06:21 Hypertensi on AND/OR vomiting complicati ng childbirth AND/OR puerperium 512036837 Active 2024 Mi Carpenter MD [address], [address], [facility] 5 20:06:21 Problem Notes None recorded. Procedures Surgical History Date Name Laterality Status Provider Name and Address Organization Details Recorded Time 12/11/19 25 USOBFollowUp completed Fatimah Casiano [facility] 12/10/2024 17:21:38 12/02/19 25 Flu vaccine Screening completed Arianne Whiteside [facility] 12/01/2024 09:25:07 10/27/19 25 USOBLimited completed [facility] 10/26/2024 17:24:04 08/19/19 25 USOBTri2-3 completed [facility] 08/18/2024 11:14:37 06/03/19 25 USOBTri1 completed Genet Hodge [facility] 06/02/2024 11:13:58 03/03/19 16 extraction of wisdom tooth completed Elías Nolasco [address], [address], [facility] 06/02/2024 10:30:07 Imaging Results None recorded. Procedure [...] % 83 /min 98.3 [degF] 26.5 kg/m2 30178.8 9 g 118/78 mm[Hg] Arianne Frankonarinder [facility] 5 09:23:42 Date Recorded Body height Oxygen saturation Oxygen saturation in Arterial blood by Pulse oximetry Heart rate Body temperature Body mass index (BMI) Body weight Systolic And Diastolic Provider Name and Address Organization Details Last Updated DateTime 5 157.48 cm 99 % 99 % 72 /min 97.7 [degF] 26.9 kg/m2 96836.8 g 108/70 mm[Hg] Gayla Rene [facility] 5 16:20:29 Date Recorded Body height Oxygen saturation Oxygen saturation in Arterial blood by Pulse oximetry Heart rate Body temperature Body mass index (BMI) Body weight Systolic And Diastolic Provider Name and Address Organization Details Last Updated DateTime 5 157.48 cm 99 % 99 % 85 /min 97.2 [degF] 27.6 kg/m2 04036.4 5 g 108/76 mm[Hg] Mary Orozco [facility] 12:09:44 Date Recorded Body height Oxygen saturation Oxygen saturation in Arterial blood by Pulse oximetry Heart rate Body temperature Body mass index (BMI) Body weight Systolic And Diastolic Systolic And Diastolic Provider Name and Address Organization Details Last Updated DateTime 5 157.48 cm 99 % 99 % 97 /min 97 [degF] 27.4 kg/m2 35505.4 2 g 144/94 mm[Hg] 146/102 mm[Hg] Nenita Chandler [facility] 12:11:46 Social History Question Answer Notes LastModified by Organizat ion Details LastModified Time Tobacco Smoking Status Current Every Day Smoker ann Neal [facility] 08/18/2024 11:32:53 Do You Have An Advance [...] Or The Highest Degree You Have Received? [id number] Information not available 06/02/2024 What Was The Date Of Your Most Recent Tobacco Screening? 12/23/2024 [email or web address] Information not available 12/23/2024 How Many Children [...] anxious, or unable to sleep at night)? [id number] Information not available 08/18/2024 Family History Relationship [...] Schizophrenia N Allergies/Hayfever Y Parkinson's Disease N MANAGER CALL Surgery N GI Problems N ADD/ADHD N Anemia N Colon Polyps N ENT Surgery N Heart Attack ([place]) N Diabetes N Ovarian Cancer N Bedwetting N Seizures/Epilepsy N Amnesia N Congestive Heart Failure (CHF) N Eczema N Abuse/Domestic Violence N Dementia N Diverticulitis N Cardiovascular N Back Surgery N Tourette Syndrome N Hypertension N Pre-Eclampsia N MANAGER CALL Procedure N Osteoporosis N Gynecological History Statement/Question [...] B, unspecified formulation 1 completed Not Available [facility] 12/23/2024 11:53:25 Hep B, adolescent/high risk 1 completed Not Available [facility] 12/23/2024 11:53:25 DTaP 1 completed Not Available [facility] 12/23/2024 11:53:25 Hib (PRP-T) 1 completed Not Available [facility] 12/23/2024 11:53:25 IPV 1 completed Not Available [facility] 12/23/2024 11:53:25 pneumococcal conjugate PCV 7 1 completed Not Available [facility] 12/23/2024 11:53:25 DTaP 2 completed Not Available [facility] 12/23/2024 11:53:25 pneumococcal conjugate PCV 7 2 completed Not Available [facility] 12/23/2024 11:53:25 IPV 2 completed Not Available [facility] 12/23/2024 11:53:25 Hib (PRP-T) 2 completed Not Available [facility] 12/23/2024 11:53:25 DTaP 2 completed Not Available [facility] 12/23/2024 11:53:25 Hib (HbOC) 2 completed Not Available [facility] 12/23/2024 11:53:25 Hep B, adolescent or pediatric 2 completed Not Available [facility] 12/23/2024 11:53:25 IPV 2 completed Not Available [facility] 12/23/2024 11:53:25 pneumococcal polysaccharide PPV23 2 completed Not Available [facility] 12/23/2024 11:53:25 DTaP 2 completed Not Available [facility] 12/23/2024 11:53:25 MMR 2 completed Not Available [facility] 12/23/2024 11:53:25 varicella 2 completed Not Available [facility] 12/23/2024 11:53:25 pneumococcal conjugate PCV 7 2 completed Not Available [facility] 12/23/2024 11:53:25 Hib (HbOC) 2 completed Not Available [facility] 12/23/2024 11:53:25 Hep A, ped/adol, 2 dose 3 completed Not Available [facility] 12/23/2024 11:53:25 Hep A, unspecified formulation 4 completed Not Available [facility] 12/23/2024 11:53:25 DTaP 6 completed Not Available [facility] 12/23/2024 11:53:25 IPV 6 completed Not Available [facility] 12/23/2024 11:53:25 MMR 6 completed Not Available [facility] 12/23/2024 11:53:25 Tdap 5 completed Not Available [facility] 12/23/2024 11:53:25 meningococcal MCV4P 9 completed Not Available [facility] 12/23/2024 11:53:25 Tdap 5 completed Nenita Chandler [facility] 10/14/2024 12:14:13 RSV, bivalent, protein subunit RSVpreF, diluent reconstituted, 0.5 mL, PF 5 completed Mary Orozco [facility] 11/26/2024 12:23:25 Influenza, MDCK, trivalent, PF 5 completed Arianne Whiteside [facility] 12/01/2024 10:39:55 Past Encounters Encounter ID Performer Location Encounter Start Date Encounter Closed Date Diagnosis/Indication Diagnosis SNOMED-CT Code Diagnosis ICD10 Code Diagnosis IMO Codes Diagnosis Note [id number] Mi Carpenter MD [facility] SUPERVISOR/PE PEPE- [place] [address] [place] [address] 06/02/2024 10:55:06 06/03/2024 12:26:35 screening 492478416 Z36.9 Gestation period, 9 weeks 333255 Z3A.09 Normal pre gnancy in primigravida 1419874724 19712 Z34.01 Electronic cigarette user 790407662 Z72.89 Body mass index 20-24 - normal 712986447 Z68.21 BMI 21.4 on intake Hypertensi on screening 286567374 Z13.6 112/76 on intake Genital he rpes simplex 08873427 A60.9 Needs suppressio n at 36w [id number] Mi Carpenter MD [facility] [employer] SUPER[employer]/PE DS- [place] [address] [place] [address] 06/02/2024 09:44:44 06/02/2024 10:46:27 [id number] Slade Peña [facility] [employer]/PE DS- [place] [address] [place] [address] 06/02/2024 10:20:08 06/02/2024 10:45:58 [id number] Mi Carpenter MD [facility] [employer] SUPER[employer]/PE DS- [place] [address] [place] [address] 06/02/2024 10:41:10 06/04/2024 09:31:31 test positive 873801708 Z32.01 [id number] Mi Carpenter MD [facility] [employer] SUPER[employer]/PE DS- [place] [address] [place] [address] 06/30/2024 13:20:06 06/30/2024 19:51:25 screening 740937612 Z36.9 NIPT low riskHorizo n negative Normal pre gnancy in primigravida 5912108135 23421 Z34.01 Electronic cigarette user 360406594 Z72.89 Body mass index 20-24 - normal 093986273 Z68.21 BMI 21.4 on intake Hypertensi on screening 023653751 Z13.6 112/76 on intake Genital he rpes simplex 97856251 A60.9 Needs suppressio n at 36w Gestation period, 13 weeks 74413984 Z3A.13 6552267 [id number] Mi Carpenter MD [facility] [employer]PE DS- [place] [address] [place] [address] 07/28/2024 09:26:34 07/29/2024 12:25:48 screening 645322993 Z36.9 NIPT low riskHorizo n negativeAF P pending 07/28/24 Normal pre gnancy in primigravida 1135362908 77034 Z34.01 Electronic cigarette user 279532579 Z72.89 Body mass index 20-24 - normal 227832235 Z68.21 BMI 21.4 on intake Hypertensi on screening 277148560 Z13.6 112/76 on intake Genital he rpes simplex 69750273 A60.9 Needs suppressio n at 36wValtrex rx for prn use Gestation period, 17 weeks 29538239 Z3A.17 5704081 constipati on issues, rx colace. Miralax discussed. [id number] Mi Carpenter MD [facility] [employer] SUPER[employer]/PE DS- [place] [address] [place] [address] 08/18/2024 11:04:25 08/23/2024 14:07:52 screening 879261007 Z36.9 NIPT low riskHorizo n negativeAF P negative Anatomy: EFW 31%tile, anterior placenta Normal pre gnancy in primigravida 5982191119 03666 Z34.01 Electronic cigarette user 771539037 Z72.89 Body mass index 20-24 - normal 636756735 Z68.21 BMI 21.4 on intake Hypertensi on screening 270902887 Z13.6 112/76 on intake Genital he rpes simplex 54520294 A60.9 Needs suppressio n at 36wValtrex rx for prn use Gestation period, 20 weeks 00370154 Z3A.20 2189379 care status 24 2617799 Z34.90 3438955219 [id number] Mi Carpenter MD [facility] [employer] SUPER[employer]/PE DS- [place] [address] [place] [address] 08/18/2024 09:50:55 08/23/2024 14:06:04 screening for malformation 764149857 Z36.3 2356837689 NIPT low riskHorizo n negative [id number] Mi Carpenter MD [facility] [employer] DS- [place] [address] [place] [place] [address] 09/14/2024 09:43:48 09/15/2024 14:02:22 screening 110287914 Z36.9 NIPT low riskHorizo n negativeAF P negative Anatomy: EFW 31%tile, anterior placenta Normal pre gnancy in primigravida 6013302499 64570 Z34.01 Electronic cigarette user 662873846 Z72.89 Body mass index 20-24 - normal 127425290 Z68.21 BMI 21.4 on intake Hypertensi on screening 781869936 Z13.6 112/76 on intake Genital he rpes simplex 14140382 A60.9 Needs suppressio n at 36wValtrex rx for prn use care status 24 4727162 Z34.90 6746206235 Gestation period, 24 weeks 793472944 Z3A.24 4184283 [id number] Mi Carpenter MD [facility] DS- [place] [address] [place] [place] [address] 10/12/2024 09:53:27 10/13/2024 18:00:04 screening 036080078 Z36.9 NIPT low riskHorizo n negativeAF P negative Anatomy: EFW 31%tile, anterior placenta Normal pre gnancy in primigravida 2866341886 82771 Z34.01 Electronic cigarette user 018422044 Z72.89 Body mass index 20-24 - normal 831956048 Z68.21 BMI 21.4 on intake Hypertensi on screening 694230303 Z13.6 112/76 on intake Genital he rpes simplex 39163351 A60.9 Needs suppressio n at 36wValtrex rx for prn use care status 24 1009807 Z34.90 2797569854 Gestation period, 28 weeks 49152148 Z3A.28 4198075 Requires d iphtheria, tetanus and pertussis vaccination 216239203 Z23 190720 Administer ed in clinic 10/12/2024. Pt tolerated injection well. DAYA Saldana Routine an tenatal care 296983297 Z34.80 [id number] Eve Dennison MD [facility] DS- [place] [address] [place] [address] 10/26/2024 15:26:05 10/27/2024 14:26:42 screening 262208066 Z36.9 NIPT low riskHorizo n negativeAF P negative Anatomy: EFW 31%tile, anterior placenta Normal pre gnancy in primigravida 8409538130 04989 Z34.01 Electronic cigarette user 294789340 Z72.89 Body mass index 20-24 - normal 487761994 Z68.21 BMI 21.4 on intake Genital he rpes simplex 28173061 A60.9 Needs suppressio n at 36wValtrex rx for prn use care status 24 0700941 Z34.90 4896608090 Requires d iphtheria, tetanus and pertussis vaccination 112157390 Z23 796283 Administer ed in clinic 10/12/2024. Pt tolerated injection well. DAYA Saldana Routine an tenatal care 698807750 Z34.80 Gestation period, 30 weeks 52181826 Z3A.30 9065570 [id number] Eve Dennison MD [facility]/PE DS- [place] [address] [place] [address] 10/26/2024 15:59:49 10/27/2024 14:31:05 Gestation period, 30 weeks 40947879 Z3A.30 3832403 [id number] Mi Carpenter MD [facility] DS- [place] [address] [place] [address] 11/12/2024 11:01:51 11/16/2024 11:40:05 screening 181826365 Z36.9 NIPT low riskHorizo n negativeAF P negative Anatomy: EFW 31%tile, anterior placenta Normal pre gnancy in primigravida 4769506776 80451 Z34.01 Electronic cigarette user 806906810 Z72.89 Body mass index 20-24 - normal 680447661 Z68.21 BMI 21.4 on intake Genital he rpes simplex 47801313 A60.9 Needs suppressio n at 36wValtrex rx for prn use care status 24 9340810 Z34.90 2719489304 Requires d iphtheria, tetanus and pertussis vaccination 797716961 Z23 820238 Administer ed in clinic 10/12/2024. Pt tolerated injection well. DAYA Saldana Routine an tenatal care 425510496 Z34.80 Gestation period, 33 weeks 01838254 Z3A.33 8891983 [id number] Mi Carpenter MD [facility] SUPER[employer]/PE DS- [place] [address] [place] [address] 11/26/2024 11:08:19 11/26/2024 12:56:04 screening 967303457 Z36.9 NIPT low riskHorizo n negativeAF P negative Anatomy: EFW 31%tile, anterior placenta Normal pre gnancy in primigravida 2949937510 57052 Z34.01 Electronic cigarette user 581358736 Z72.89 cessation encouraged Body mass index 20-24 - normal 322692775 Z68.21 BMI 21.4 on intake Genital he rpes simplex 65197755 A60.9 No symptomsOn Valtrex care status 24 8982420 Z34.90 9564210191 Requires d iphtheria, tetanus and pertussis vaccination 171031125 Z23 399589 Administer ed in clinic 10/12/2024. Pt tolerated injection well. DAYA Saldana Routine an tenatal care 948785828 Z34.80 GBS next appt Requires r espiratory syncytial virus vaccination 156211060 Z29.11 378690 given today 11/26/24 Gestation period, 35 weeks 93979246 Z3A.35 8044747 Doing wellParent s wondering about elective IOL (live 90 mins away). Discussed pros/cons, literature and expected primigravi d course. To discuss in the future. [id number] Mi Carpenter MD [facility] [employer] SUPER[employer]OR/PE DS- [place] [address] [place] [address] 12/01/2024 09:08:36 12/01/2024 10:10:57 Routine care 136146041 Z34.80 GBS next appt screening 2437 12744 Z36.9 NIPT low riskHorizo n negativeAF P negative Anatomy: EFW 31%tile, anterior placenta Gestation period, 35 weeks 48472377 Z3A.35 3446699 Doing wellParent s wondering about elective IOL (live 90 mins away). Discussed pros/cons, literature and expected primigravi d course. To discuss in the future. Normal pre gnancy in primigravida 7660404142 79240 Z34.01 Electronic cigarette user 128263055 Z72.89 cessation encouraged Body mass index 20-24 - normal 035395698 Z68.21 BMI 21.4 on intake Genital he rpes simplex 10666484 A60.9 No symptomsOn Valtrex care status 24 7635671 Z34.90 2142393207 Requires d iphtheria, tetanus and pertussis vaccination 134491047 Z23 486875 Administer ed in clinic 10/12/2024. Pt tolerated injection well. DAYA Saldana Requires r espiratory syncytial virus vaccination 285225363 Z29.11 242800 given today 11/26/24 Requires i nfluenza virus vaccination 416601175 Z23 6341384 [id number] Mi Carpenter MD [facility] SU[employer]/PE DS- [place] [address] [place] [address] 12/10/2024 15:42:10 12/10/2024 17:15:01 Small for gestational age fetus 892994814 O36.5930 77024663 [id number] Mi Carpenter MD [facility] SUPER[employer]/PE DS- [place] [address] [place] [address] 12/10/2024 16:03:29 12/10/2024 17:00:36 Routine care 903805416 Z34.80 GBS Neg screening 2437 94843 Z36.9 NIPT low riskHorizo n negativeAF P negative 12/10/24An atomy: EFW 35%tile, anterior placenta Normal pre gnancy in primigravida 1804566341 52582 Z34.01 Electronic cigarette user 712082317 Z72.89 cessation encouraged Body mass index 20-24 - normal 510722988 Z68.21 BMI 21.4 on intake Genital he rpes simplex 61109931 A60.9 No symptomsOn Valtrex care status 24 6821505 Z34.90 9598089929 Requires d iphtheria, tetanus and pertussis vaccination 631845200 Z23 531123 Administer ed in clinic 10/12/2024. Pt tolerated injection well. DYAA Saldana Requires r espiratory syncytial virus vaccination 089612474 Z29.11 662919 given today 11/26/24 Requires i nfluenza virus vaccination 608141158 Z23 8963007 [id number] Eve Dennison MD [facility] SUPER[employer]OR/PE DS- [place] [address] [place] [address] 12/17/2024 11:53:05 12/17/2024 14:50:26 Routine care 828022653 Z34.80 GBS Neg screening 2437 19687 Z36.9 NIPT low riskHorizo n negativeAF P negative 12/10/24An atomy: EFW 35%tile, anterior placenta Normal pre gnancy in primigravida 5708150076 89554 Z34.01 Electronic cigarette user 928982031 Z72.89 cessation encouraged Body mass index 20-24 - normal 596536550 Z68.21 BMI 21.4 on intake Genital he rpes simplex 02783758 A60.9 No symptomsOn Valtrex Requires d iphtheria, tetanus and pertussis vaccination 056627403 Z23 105799 Administer ed in clinic 10/12/2024. Pt tolerated injection well. DAYA Saldana Requires r espiratory syncytial virus vaccination 431798265 Z29.11 534107 given today 11/26/24 Requires i nfluenza virus vaccination 102059210 Z23 4103590 administer ed 12/01/2024 Diet education 50688487 Z71.3 Discussed need for balanced diet ---> [...] per day. Exercises education, guidance, and counseling 688431022 Z71.82 In addition to mindful diet and nutrition, mindful body movement is essential for metabolism of food. Formal exercise programs, walking within 30-40 min of meals (10-15 min), and strength training 3-4 days per week. Gestation period, 38 weeks 49336196 Z3A.38 4678656 [id number] Mi Carpenter MD [facility] [employer] SUPERVISOR/PE DS- [place] [address] [place], [place] [address] 12/23/2024 11:51:47 12/23/2024 15:13:32 Routine care [id number] Z34.80 GBS Neg screening 2437 96093 Z36.9 NIPT low riskHorizo n negativeAF P negative 12/10/24An atomy: EFW 35%tile, anterior placenta Normal pre gnancy in primigravida [id number] 68327 Z34.01 Electronic cigarette user 448162306 Z72.89 cessation encouraged Body mass index 20-24 - normal 490506191 Z68.21 BMI 21.4 on intake Genital he rpes simplex 99082800 A60.9 No symptomsOn Valtrex Requires d iphtheria, tetanus and pertussis vaccination 724820196 Z23 896387 Administer ed in clinic 10/12/2024. Pt tolerated injection well. DAYA Saldana Requires r espiratory syncytial virus vaccination 319740285 Z29.11 864327 given today 11/26/24 Requires i nfluenza virus vaccination 363181267 Z23 0236002 administer ed 12/01/2024 Diet education 50765924 Z71.3 Discussed need for balanced diet ---> [...] per day. Exercises education, guidance, and counseling 864030152 Z71.82 In addition to mindful diet and nutrition, mindful body movement is essential for metabolism of food. Formal exercise programs, walking within 30-40 min of meals (10-15 min), and strength training 3-4 days per week. Gestation period, 39 weeks 66621624 Z3A.39 0746215 Hypertensi on AND/OR vomiting complicating childbirth AND/OR puerperium 614526432 O13.3 [id number] admit to L&D for IOLCytotec /Pitocin consents signedL&D aware.GBS neg Health Concerns Section Related Observation LastModified by Organization Detai ls LastModified Time None Recorded Concern Status LastModified by Organization Details LastModified Time None Recorded Advance Directives Directive N: Payers Insurance Date Sequence Insurance Name Policy Number Policy Casas Covered Member ID Casas Member ID Guarantor Name 12/17/2024 2 [place] Jayashree Tune [id number] Jayashree Tune 12/30/[address] [facility] [place] MOHNET Jayashree Ovalles Tune [id number] Jaysahree Tune Notes Date Note Type Note Provider Name and Address Organization Details Recorded Time 12/10/2024 text/html ROS as noted in the HPI Mi Carpenter MD [address] [place] [address], [id number], [facility] 12/12/2024 17:01:27 12/23/2024 text/html ROS as noted in the [facility] Mi Carpenter MD [address], [phone], [facility] 12/23/2024 20:09:48 OBGyn Episode Ob Episode Information Episode Created Date Number of Fetuses Patient Bloodtype Patient rh Status Prepregnancy Weight lbs Domestic Partner Domestic Partner Phone Father Name Salad Counter Attendant Status 06/03/19 25 1 A Positive 115 Lit Cade OPEN Fetus Data First Name Last Name Admitted to NICU Weight (g) Sex Living Outcome Pediatric Complications Fetus ID Race Codes Race Delivery Type [id number] Problems Problem Notes Problem Name Start Date End Date Resolution Snomed Code Not e Genital herpes simplex 06/02/2024 116351 06 Needs suppression at 36w Hypertension AND/OR vomiting complicating childbirth AND/OR puerperium 12/23/2024 [id number] Amy Calculation Initial Amy Date Initial Exam [...] in lbs Pre/Post Dialysis Refused With clothes 116.488140747011 BP Diastolic BP Location Tested BP Systolic [...] in lbs Pre/Post Dialysis Refused With clothes 116.705201652068 BP Diastolic BP Location Tested BP Systolic [...] deniesMEDICAL PROBLEMS: headaches, HSVLAST PAP[facility], discussed B6/doxylamineMEDICATIONS:B6/doxylamine, continue PNVLABS: new OB labs, NIPT/Horizon, AWAIT RESULTS.Met with resource team today for diet, exercise, safe meds. Discussed frequency of visits, US surveillanceRTC 4wk Flowsheet Date 06/30/2024 Barreto Score Blood Edema Fundus Height Fundus Units Glucose Ketones Leukocytes Nitrite Labor Signs Protein Cervic Dilation Cervic Effacement Cervic Station Type Weight in lbs Pre/Post Dialysis Refused With clothes 120.557779626127 BP Diastolic BP Location Tested BP Systolic [...] in lbs Pre/Post Dialysis Refused With clothes 121.722892122911 BP Diastolic BP Location Tested BP Systolic [...] in lbs Pre/Post Dialysis Refused With clothes 127.157910531229 BP Diastolic BP Location Tested BP Systolic [...] in lbs Pre/Post Dialysis Refused With clothes 133.136580524385 BP Diastolic BP Location Tested BP Systolic [...] in lbs Pre/Post Dialysis Refused With clothes 137.296023879030 BP Diastolic BP Location Tested BP Systolic BP Type 72 L arm 110 sitting Fetus Heart Rate Present A 137 Fetus Movement A Yes Comments 28+5w ROBReports good movementHaving heartburn, okay for PPI or H2 ivet. Reviewed use of compression stockings if sitting/standing for long periods. Had 3D comp US [id number]/CBC collected. TDap given after discussionRTC 2 wk Flowsheet Date 10/26/2024 Barreto Score Blood Edema Fundus Height Fundus Units Glucose Ketones Leukocytes Nitrite Labor Signs Protein Cervic Dilation Cervic Effacement Cervic Station none none Type Weight in lbs Pre/Post Dialysis Refused With clothes 137.638483077984 BP Diastolic BP Location Tested BP Systolic [...] in lbs Pre/Post Dialysis Refused With clothes 140.295636070400 BP Diastolic BP Location Tested BP Systolic BP Type 76 L arm 118 sitting Fetus Heart Rate Present A 136 Present Fetus Movement Comments 33.2 wks no comps today. In ER in [place], [place] on 10/28/24 for spotting (dx dehydration-records reviewed). No further spotting. GFM, nl LOF. No PIH, PTL symptoms. Flowsheet Date 11/26/2024 Barreto Score Blood Edema Fundus Height Fundus Units Glucose Ketones Leukocytes Nitrite Labor Signs Protein Cervic Dilation Cervic Effacement Cervic Station Type Weight in lbs Pre/Post Dialysis Refused With clothes 141.767497678730 BP Diastolic BP Location Tested BP Systolic [...] in lbs Pre/Post Dialysis Refused With clothes 145.516922710082 BP Diastolic BP Location Tested BP Systolic [...] in lbs Pre/Post Dialysis Refused With clothes 147.564239601147 BP Diastolic BP Location Tested BP Systolic [...] in lbs Pre/Post Dialysis Refused With clothes 151.661695847485 BP Diastolic BP Location Tested BP Systolic [...] in lbs Pre/Post Dialysis Refused Without clothes 149.981308319383 BP Diastolic BP Location Tested BP Systolic [...] false Congenital Heart Defect false Thalassemia (Belgian, Amharic, Mediterranean, Or Background): MCV < 80 false [...] false Hemophilia Or Other Blood Disorders false [place] false Sickle Cell Disease Or Trait () false Rash Or Viral Illness Since Last Menstrual Perio d false Down Syndrome false Other Inherited Genetic Or Chromosomal Disorder false Daniel-Sachs (eg, Caodaism, Cajun, Micronesian-[place]) f alse Mental Retardation/Autism false Prior GBS-infected child false Delivery Information Delivery Date Delivery Type Labor Anesthesia Weeks Gestation Incision Type Labor Labor Length Hrs Delivered By Post Complications Tubal Sterilization Discharge Date Comments Discharge Information Feeding Method Contraceptive Method Maternal HG B and HCT Levels
--- NOTE | 2025-01-21 22:58 | PM.OBGYDC ---
Discharge Providers RESPIRATORY SUPPORT TECHNICIAN Date of Admission: 12/30/24 17:22 Date of Discharge: 12/31/24 Attending Provider at Admission: Triston Owens MD Attending Provider at Discharge: Triston Owens MD Consults: none Primary Care Provider: Ambar León APN Diagnoses at Discharge Discharge Diagnosis 1. hypertension: Details from hospital stay: 24 y.o. Had care in [place] Had no complications until term, when she was noted to have elevated BPs She was admitted to a hospital in [place], underwent induction of labor Had primary low-transverse December 25, 2024 for failure to progress Patient was discharged to home on December 26, 2024 in good condition She was doing well until morning December 30 Patient noted headache and elevated BP when she checked her BP at home Brought to [facility] ER by ambulance No seizure, blurry vision, abdominal pain, vaginal bleeding No nausea, vomiting No dizziness, palpitation, chest pain, shortness of breath + moderately severe headache, states feels worse than a migraine + lower extremity swelling In ER here, BP was 143 / 96 Hgb was 7.7 Other labs, including platelets, normal EKG normal Patient was admitted to OB with diagnosis of pre-eclampsia She was started on MgSO4 IV, labetolol and procardia she was observed overnight On December 31, 2024, patient was feeling much better her BPs were normal She was therefore discharged home with strict precautions / instructions 2. Anemia: Details from hospital stay: patient's admission hgb was 7.7 She did not have dizziness, chest pain, palpitations or shortness of breath She was given instructions to take iron and to followup with her own OB within two days Reason for Visit Reason for Visit: Post 12/25 High BP Headache Brief History: 24 y.o. Had care in [place] Had no complications until term, when she was noted to have elevated BPs She was admitted to a hospital in [place], underwent induction of labor Had primary low-transverse December 25, 2024 for failure to progress Patient was discharged to home on December 26, 2024 in good condition She was doing well until morning December 30 Patient noted headache and elevated BP when she checked her BP at home Brought to [facility] ER by ambulance No seizure, blurry vision, abdominal pain, vaginal bleeding No nausea, vomiting No dizziness, palpitation, chest pain, shortness of breath + moderately severe headache, states feels worse than a migraine + lower extremity swelling In ER here, BP was 143 / 96 Hgb was 7.7 Other labs, including platelets, normal EKG normal Patient was admitted to OB with diagnosis of pre-eclampsia Hospital Course Hospital Course 24 y.o. Had care in [place] Had no complications until term, when she was noted to have elevated BPs She was admitted to a hospital in [place], underwent induction of labor Had primary low-transverse December 25, 2024 for failure to progress Patient was discharged to home on December 26, 2024 in good condition She was doing well until morning of December 30 Patient noted headache and elevated BP when she checked her BP at home Brought to [facility] ER by ambulance No seizure, blurry vision, abdominal pain, vaginal bleeding No nausea, vomiting No dizziness, palpitation, chest pain, shortness of breath + moderately severe headache, states feels worse than a migraine + lower extremity swelling In ER here, BP was 143 / 96 Hgb was 7.7 Other labs, including platelets, normal EKG normal Patient was admitted to OB with diagnosis of pre-eclampsia She was started on MgSO4 IV, labetolol and procardia she was observed overnight On December 31, 2024, patient was feeling much better her BPs were normal She was therefore discharged home with strict precautions / instructions patient's admission hgb was 7.7 She did not have dizziness, chest pain, palpitations or shortness of breath She was given instructions to take iron and to followup with her own OB within two days Physical Exam Narrative: BPs 121 / 83; 122 / 80; 126 / 73 General comfortable, awake, alert Lungs: clear Cor: RRR Abd: soft, nontender. Wound healing well Ext: no edema Discharge Data Studies Completed and Pending Completed Studies During Hospitalization Category Date Time Status XR chest 1V portable [id number] Stat Exams 12/30/24 13:55 Completed Radiology Impressions Chest X-Ray 12/30/24 13:55 IMPRESSION: 1. No acute cardiopulmonary finding. Laboratory Results WBC 9.46 10^3/uL (3.29-11.43) 12/30/24 12:29 RBC 2.99 10^6/uL (3.85-5.65) L 12/30/24 12:29 Hgb 7.70 g/dL (11.27-16.99) L 12/30/24 12: Hct 25.8 % (36-47) L 12/30/24 12: MCV 86.3 fl (85-98) 12/30/24 12: MCH 25.8 pg (27-33) L 12/30/24 12: MCHC 29.8 g/dL (30-55) L 12/30/24 12: RDW 15.6 % (12.1-15.1) H 12/30/24 12: Plt Count 259 10^3/cmm (157-399) 12/30/24 12: MPV 10.4 fL (7.4-10.4) 12/30/24 12: Neut % (Auto) 69.9 % 12/30/24 12: Lymph % (Auto) 19.0 % 12/30/24 12: [place] % (Auto) 3.4 % 12/30/24 12: Eos % (Auto) 4.9 % 12/30/24 12: Baso % (Auto) 0.2 % 12/30/24 12: Neut # (Auto) 6.61 10^3/uL (1.8-7.7) 12/30/24: Lymph # (Auto) 1.8 10^3/uL (0.8-4.8) 12/30/24 12: [place] # (Auto) 0.3 10^3/uL (0.2-0.9) 12/30/24 12: Eos # (Auto) 0.5 10^3/uL (0.0-0.8) 12/30/24 12: Baso # (Auto) 0.0 10^3/uL (0.0-0.1) 12/30/24: Nucleated RBC % (auto) 0.3 % 12/30/24: Nucleated RBCs # 0.0 /100WBC 12/30/24 12: Sodium 141 mmol/L (136-145) 12/30/24 12: Potassium 4.0 mmol/L (3.5-5.1) 12/30/24 12: Chloride 102 mmol/L (98-107) 12/30/24 12: Carbon Dioxide 27 mmol/L (22-29) 12/30/24 12: Anion Gap 16.0 (5-19) 12/30/24 12: BUN 12 mg/dL (6-20) 12/30/24 12: Creatinine 0.5 mg/dL (0.5-0.9) 12/30/24 12: GFR Calculation 151.6 mL/min (90-130) H 12/30/24 12: Glucose 95 mg/dL (65-115) 12/30/24 12: Calculated Osmolality 292 mOsm/kg (285-295) 12/30/24 12: Calcium 9.4 mg/dL (8.5-10.5) 12/30/24 12: Total Bilirubin 0.2 mg/dL (0.15-1.2) 12/30/24 12: AST 58 U/L (0-32) H 12/30/24 12: ALT 62 U/L (0-33) H 12/30/24 12: Alkaline Phosphatase 163 U/L (35-105) H 12/30/24 12: NT-Pro-B Natriuret Pep 1925 pg/mL (0-125) H 12/30/24 12: Total Protein 6.8 g/dL (6.6-8.7) 12/30/24 12: Albumin 3.6 g/dL (3.5-5.2) 12/30/24 12: Globulin 3.2 g/dL (1.3-4.6) 12/30/24 12: Urine Color Yellow (Yellow) 12/30/24 14:42 Urine Appearance Clear (CLEAR) 12/30/24 14: Urine pH 8.0 (5-7) A 12/30/24 14:42 Ur Specific [place] 1.009 (1.005-1.030) 12/30/24 14: Urine Protein Negative (Negative) 12/30/24 14:42 Urine Glucose (UA) Negative (Normal) 12/30/24 14: Urine Ketones Negative (Negative) 12/30/24 14: Urine Blood 2+ (Negative) A 12/30/24 14: Urine Nitrate Negative (Negative) 12/30/24 14:42 Urine Bilirubin Negative (Negative) 12/30/24 14:42 Urine Urobilinogen 0.2 mg/dL (Negative) 12/30/24 14:42 Ur Leukocyte Esterase 1+ (Negative) A 12/30/24 14:42 Urine RBC 6-10 /hpf (0-2) 12/30/24 14:42 Urine WBC 11-20 /hpf (0-5) H 12/30/24 14:42 Ur Squamous Epith Cells 0-5 /hpf (0-5) 12/30/24 14:42 Amorphous Sediment Not Reportable 12/30/24 14:42 Urine Bacteria None seen /hpf (NONE) 12/30/24 14:42 Hyaline Casts 0-4 /lpf H 12/30/24 14:42 Vitals Last Vital Signs Temp 98.3 F 12/30/24 20:53 Pulse 92 12/31/24 17:42 Resp 16 12/30/24 20:53 BP 152/95 12/31/24 17:42 Pulse Ox 98 12/30/24 15:41 O2 Del Method Room Air 12/30/24 17:00 Results Labs OB ([facility]): Hct, (36-47) 25.8 % L 12/30/24 Hgb, (11.27-16.99) 7.70 g/dL L 12/30/24 Plt Count, (157-399) 259 10^3/cmm 12/30/24 Micro Urine Specimen 12/30/24 Discharge Plan Discharge Patient Disposition: Home Condition: Stable Prescriptions: New nifedipine [Procardia XL] 30 mg tablet extended release 24hr 30 mg PO DAILY Qty: 30 0RF ferrous sulfate 325 mg (65 mg iron) tablet 325 mg PO BID Qty: 60 0RF Continued ibuprofen 800 mg tablet 800 mg PO TID hydrocodone-acetaminophen 5-325 mg tablet See Rx Instructions .ROUTE .COMPLEX Rx Instructions: TAKE 1 TABLET BY MOUTH EVERY 4 HOURS NEEDED FOR PAIN; PER DOCTORS DECISION cephalexin 500 mg capsule 500 mg PO TID labetalol 100 mg tablet 100 mg PO BID valacyclovir 500 mg tablet 500 mg PO BID Discharge Order = DC NOW: Discharge Order (Routine); Ordered 12/31/24 Ordered By: Triston Owens Referrals: Ambar León APN [Primary Care Provider, Family Practice] Triston Owens MD [Physician, RESPIRATORY SUPPORT TECHNICIAN] Referral Note: FOLLOW UP APPOINTMENT FridayJanuary 1:30 PM FOR BLOOD PRESSURE CHECK. Discharge Diet: Usual diet Discharge Activity: Increase activity as tolerated Patient Instructions: Iron Supplements (By mouth) (Duofer, Fe-20, Bifera, Balaji-Iron), Nifedipine (By mouth) (Adalat CC, Nifedical XL, Procardia, Procardia XL), Preeclampsia and Eclampsia After Delivery (GEN), OB Discharge Report, Opioid Safety, Patient Portal & Sera Instructions Activity Restrictions/Additional Instructions: CALL OB 24/ IF ANY QUESTIONS OR CONCERNS TAKE BLOOD PRESSURES TWICE A DAY AND NEEDED IF SHE FEELS BAD AND KEEP RECORD OF THEM AND TAKE RESULTS TO DOCTOR'S OFFICE WHEN YOU GO IN ON FRIDAY. TAKE MEDICATIONS ORDERED RETURN TO ER IF YOU START TO FEEL BAD AGAIN. Discharge Attestations RESPIRATORY SUPPORT TECHNICIAN Time Spent in Discharge Care*: less than 30 min Coding Level of Care Code Acute Code for Chg Fwd Diagnoses hypertension O16.5 Anemia D64.9
== END 2024-12-31 17:55 | disposition home or self-care (01) ==
LOC: ER 16:36 → OBGYN 17:41
PROVIDERS: Family Medicine; Admitting Provider Obstetrics & Gynecology; Emergency Provider Emergency Medicine; PCP Nurse Practitioner Family; Visit Provider Obstetrics & Gynecology
DX: O16.5 Unspecified maternal hypertension, complicating the puerperium (principal); D64.9 Anemia, unspecified; Z79.891 Long term (current) use of opiate analgesic
CPT/HCPCS: 36415; 71045; 80053; 81001; 83880; 85025; 87086; 93005; 96365; 96375; 99285; G0378; J0360; J3475; J7121; J9999